=== PATIENT | male | born 1960 | race Caucasian/White ===

== ENCOUNTER 2018-05-14 13:25 | Inpatient (IN) | payer BC, OTHER ==
--- NOTE | 2018-05-14 14:04 | PDOC ---
Attending Attestation - Resident Resident Name: Yvonne Gerardo - ED Attending Attestation I have performed the following: I have examined & evaluated the patient, The case was reviewed & discussed with the resident, I agree w/resident's findings & plan, Exceptions are as noted
--- NOTE | 2018-05-14 14:29 | PDOC ---
History of Present Illness <Lorie Treviño - Last Filed: 05/14/18 15:24> - History of Present Illness Initial Comments: Ronald Connors is a 57yo man with a PMH of HTN, HLD, IDDM (reports last A1C 7.3) who presents from Dr Solano's office with new onset of symptomatic 2: 1 heart block, HR in 30's. He says that he started to have chest pressure with walking several days ago, though he denies ever having any pain. He has never experienced anything similar in the past. He went to see his PMD and was found to have a HR of 37 with a 2:1 block. He was sent to the ED for additional workup and cardiology consult. Mr Connors denies any chest pain other than the pressure feeling, as well as denying any SOB, recent fever/chills, cough, nausea/vomiting, unusual sweating, or any other recent symptoms. He notes that his diabetes has gotten worse lately with an increase in his A1C, but he takes all of his medications as prescribed. <Yvonne Gerardo - Last Filed: 05/14/18 18:03> - General Chief Complaint: Chest Pain Stated Complaint: SENT BY PCP // BRADYCARDIA Time Seen by Provider: 05/14/18 13:43 Past History <Lorie Treviño - Last Filed: 05/14/18 15:24> - Past Medical History COPD: No Diabetes: Yes HTN: Yes Hypercholesterolemia: Yes - Immunization History Immunization Up to Date: Yes - Suicide/Smoking/Psychosocial Hx Smoking History: Never smoked Information on smoking cessation initiated: No Hx Alcohol Use: No Drug/Substance Use Hx: No <Yvonne Gerardo - Last Filed: 05/14/18 18:03> - Past Medical History Allergies/Adverse Reactions: Allergies Allergy/AdvReac Type Severity Reaction Status Date / Time No Known Allergies Allergy Verified 01/17/13 12:11 Home Medications: Ambulatory Orders ASA - 81 mg PO DAILY 06/24/16 Amlodipine Besylate 10 mg PO DAILY 06/24/16 Atenolol 50 mg PO DAILY 06/24/16 Bydureon Pen 2 mg SQ WEEKLY 06/24/16 Gabapentin 300 mg PO BID 06/24/16 Invokamet 150-500 mg Tablet 1 mg PO BID 06/24/16 Lipitor 20 mg PO DAILY 06/24/16 Novolog Mix 70-30 Flexpen Syrn 40 unit SQ BID 06/24/16 Quinapril/Hydrochlorothiazide 1 tab PO DAILY 06/24/16 Canagliflozin/Metformin HCl [Invokamet Xr 150-500 mg Tablet] 1 each PO BID 05/14 Cholecalciferol (Vitamin D3) [Vitamin D3] 1,000 unit PO DAILY 05/14/18 Cyclobenzaprine HCl 10 mg PO TID 05/14/18 Review of Systems - Review of Systems Comments:: General: No fevers, no chills, no weight or appetite change, no malaise HEENT: No changes in vision, no changes in hearing, no congestion, no sore throat. +congestion when laying down CV: No chest pain, no palpitations, no LE edema. +sternal pressure w/ walking Pulm: No SOB, no cough, no wheezing GI: No nausea or vomiting, no change in bowel habits, no melena : No frequency, no urgency, no dysuria Musc: No back pain, no joint swelling, no recent injury Skin: No rash, no lesions, no erythema Endo: No excessive thirst, no heat/cold intolerance Heme: No unusual bruising or bleeding, no swollen glands Neuro: No syncope, no numbness/tingling, no focal weakness Vasc: No claudication Psych: No recent change in mood, no SI or HI <Yvonne Gerardo - Last Filed: 05/14/18 18:03> *Physical Exam - Vital Signs Last Vital Signs Temp Pulse Resp BP Pulse Ox 34 L 18 136/63 100 05/14/18 14:07 05/14/18 14:07 05/14/18 14:07 05/14/18 14:45 <Lorie Treviño - Last Filed: 05/14/18 15:24> - Vital Signs Last Vital Signs Temp Pulse Resp BP Pulse Ox 34 L 18 136/63 99 05/14/18 14:07 05/14/18 14:07 05/14/18 14:07 05/14/18 13:54 - Physical Exam Comments: General: Comfortable, no acute distress HEENT: PERRL, EOMI, MMM, voice normal, normal neck ROM, no LAD Cards: Marked bradycardia, regular rhythm Pulm: Comfortable on room air, clear to auscultation bilaterally Abd: Soft, nontender, nondistended Ext: Atraumatic. No LE edema. ROM intact. Strength 5/5 and equal bilaterally Vasc: Extremities WWP Skin: Normal color, no rashes or lesions Neuro: A&Ox3, CN grossly intact, normal speech, motor/sensory grossly intact and symmetric Psych: Mood appropriate to situation <Yvonne Gerardo - Last Filed: 05/14/18 18:03> Moderate Sedation - Procedure Monitoring Vital Signs: Procedure Monitoring Vital Signs Temperature Pulse Rate 34 L 05/14/18 14:07 Respiratory Rate 18 05/14/18 14:07 Blood Pressure 136/63 05/14/18 14:07 O2 Sat by Pulse Oximetry (%) 100 05/14/18 14:45 <Lorie Treviño - Last Filed: 05/14/18 15:24> - Procedure Monitoring Vital Signs: Procedure Monitoring Vital Signs Temperature Pulse Rate 34 L 05/14/18 14:07 Respiratory Rate 18 05/14/18 14:07 Blood Pressure 136/63 05/14/18 14:07 O2 Sat by Pulse Oximetry (%) 99 05/14/18 13:54 <Yvonne Gerardo - Last Filed: 05/14/18 18:03> ED Treatment Course - LABORATORY CBC & Chemistry Diagram: 05/14/18 14:09 05/14/18 14:09 - ADDITIONAL ORDERS Additional order review: Laboratory Results 05/14/18 14:09 Sodium 138 Potassium 4.3 Chloride 107 Carbon Dioxide 23 Anion Gap 8 BUN 28 H Creatinine 1.1 Creat Clearance w eGFR > 60 Random Glucose 96 Calcium 8.7 Magnesium 2.0 Total Bilirubin 0.9 AST 47 H ALT 60 Alkaline Phosphatase 112 Creatine Kinase 192 Creatine Kinase Index 1.6 CK-MB (CK-2) 3.2 Troponin I 0.02 Total Protein 7.1 Albumin 3.7 05/14/18 14:09 RBC 4.92 MCV 85.0 MCHC 33.3 RDW 14.9 MPV 9.1 Neutrophils % 61.0 Lymphocytes % 27.8 Monocytes % 7.8 Eosinophils % 2.6 Basophils % 0.8 - RADIOLOGY Radiology Studies Ordered: Category Date Time Status CHEST X-RAY PORTABLE* [RAD] Stat Radiology 05/14/18 14:05 Taken <Lorie Treviño - Last Filed: 05/14/18 15:24> - LABORATORY CBC & Chemistry Diagram: 05/14/18 14:09 05/14/18 14:09 <Yvonne Gerardo - Last Filed: 05/14/18 18:03> Medical Decision Making - Medical Decision Making 05/14/18 14:24 Ronald Connors is a 57yo man with a PMH of HTN, HLD, IDDM (reports last A1C 7.3) who presents from Dr Solano's office with new onset 2:1 heart block, HR in 30's. He is asymptomatic other than a feeling of sternal pressure with exertion over the past several days. - EKG sent from primary's office, will repeat here - CBC, chemistry, coags, trop, CXR - Will need to be admitted. When results available, will discuss with Dr Solano and consult cardiology 05/14/18 15:32 - Labs reviewed. No concerning abnormalities. Trop negative - Dr Andrea at bedside. Will admit to telemetry - Paged Dr Mchugh; spoke to Dr Andrea regarding consult. Discussed with Dr Treviño. Yvonne Gerardo PGY1 <Yvonne Gerardo - Last Filed: 05/14/18 18:03> *DC/Admit/Observation/Transfer - Discharge Dispostion Decision to Admit order: Yes <Lorie Treviño - Last Filed: 05/14/18 15:24> - Discharge Dispostion Decision to Admit order: Yes <Yvonne Gerardo - Last Filed: 05/14/18 18:03> Diagnosis at time of Disposition: Symptomatic bradycardia Chest pain Qualifiers: Chest pain type: unspecified Qualified Code(s): R07.9 - Chest pain, unspecified - Discharge Dispostion Condition at time of disposition: Fair
[2018-05-14 14:30] LABS: BASO % 0.8 % (0-2.0); EOS % 2.6 % (0-4.5); HEMATOCRIT 41.8 % (35.4-49); HEMOGLOBIN 13.9 GM/dL (11.7-16.9); LYMPH % 27.8 % (8-40); MCH 28.3 pg (25.7-33.7); MCHC 33.3 g/dl (32.0-35.9); MEAN PLT VOLUME 9.1 fl (7.5-11.1); MONO % 7.8 % (3.8-10.2); PLATELET COUNT 203 K/MM3 (134-434); RBC 4.92 M/mm3 (4.00-5.60); RDW 14.9 % (11.9-15.9); WHITE BLOOD COUNT 11.4 K/mm3 (4.0-10.0)
[2018-05-14 14:59] LABS: ALBUMIN 3.7 g/dl (3.4-5.0); ALK PHOS 112 U/L (45-117); ANION GAP 8 MMOL/L (8-16); BILIRUBIN,TOTAL 0.9 mg/dL (0.2-1); BLOOD UREA NITROGEN 28 mg/dL (7-18); CALCIUM 8.7 mg/dL (8.5-10.1); CHLORIDE 107 mmol/L (98-107); CO2 23 mmol/L (21-32); CREATININE 1.1 mg/dL (0.55-1.3); GLUCOSE,RANDOM 96 mg/dL (74-106); POTASSIUM 4.3 mmol/L (3.5-5.1); SGOT/AST 47 U/L (15-37); SGPT/ALT 60 U/L (13-61); SODIUM 138 mmol/L (136-145); TOT PROT 7.1 g/dl (6.4-8.2)
[2018-05-14 15:44] LABS: INR 1.08 (0.83-1.09); PROTHROMBIN TIME (PATIENT) 12.7 SEC (9.7-13.0)
--- NOTE | 2018-05-14 15:47 | HP ---
Admitting History and Physical - Admission Chief Complaint: 57 y.o M with history of T2DM for years and HTN, presented to the office with C/O orthopnea, exertional SSCP x few days, generalized weakness. His HR was 37 in the office and EKG SR, old LBBB and a new 2:1AVB. The patient was sent to [facility] AND ADMITTED FOR FURTHER MANAGEMENT TO TELEMETRY. 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 HTN LBBB Right 3rd toe ulcer. 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: Peripheral Neuropathy Cardiovascular: Yes: HTN Pulmonary: No: Asthma, Bronchitis, Cancer, COPD, O2 Dependent, Pneumonia, Previously Intubated, Pulmonary Embolus, Pulmonary Fibrosis, Sleep Apnea, Other Gastrointestinal: No: Ascites, Cancer, Constipation, Crohn's Disease, Diverticulitis, Diverticulosis, Esophageal Varices, Gastritis, GERD, GI Bleed, Hemorrhoids, Hiatal Hernia, Inflamatory Bowel Disease, Irritable Bowel Disease, Pancreatitis, Peptic Ulcer Disease, Ulcerative Colitis, Other Hepatobiliary: No: Cirrhosis, Cholelithiasis, Cholecystitis, Choledocholithiasis , Hepatitis A, Hepatitis B, Hepatitis C, Other Renal/: No: Renal Failure, Renal Inusuff, BPH, Cancer, Hematuria, Hemodialysis , Neurogenic Bladder, Renal Calculi, UTI, Other Heme/Onc: No: Anemia, B12 Deficiency, Bleeding Disorder, Cancer, Current Chemotherapy, Current Radiation Therapy, Hemochromatosis, Hypercoaguable State, Myeloproliferative Synd, Sickle Cell Disease, Sickle Cell Trait, Thrombocytopenia, Other Infectious Disease: No: AIDS, C-Diff, Herpes Zoster, HIV, MRSA, STD's, Tuberculosis, VREF, Other Musculoskeletal: No: Bursitis, Chronic low back pain, Hemiparesis, Hemiplegia, Osteoarthritis, Paraplegia, Other Rheumatology: No: Fibromyalgia, Gout, Lupus, Rheumatoid Arthritis, Sarcoidosis, Vasculitis, Other Endocrine: Yes: Diabetes Mellitus - Smoking History Smoking history: Never smoked - Alcohol/Substance Use Hx Alcohol Use: No Home Medications - Allergies Allergies/Adverse Reactions: Allergies Allergy/AdvReac Type Severity Reaction Status Date / Time No Known Allergies Allergy Verified 01/17/13 12:11 - Home Medications Home Medications: Ambulatory Orders ASA - 81 mg PO DAILY 06/24/16 Amlodipine Besylate 10 mg PO DAILY 06/24/16 Atenolol 50 mg PO DAILY 06/24/16 Bydureon Pen 2 mg SQ WEEKLY 06/24/16 Gabapentin 300 mg PO BID 06/24/16 Invokamet 150-500 mg Tablet 1 mg PO BID 06/24/16 Lipitor 20 mg PO DAILY 06/24/16 Novolog Mix 70-30 Flexpen Syrn 40 unit SQ BID 06/24/16 Quinapril/Hydrochlorothiazide 1 tab PO DAILY 06/24/16 Canagliflozin/Metformin HCl [Invokamet Xr 150-500 mg Tablet] 1 each PO BID 05/14 Cholecalciferol (Vitamin D3) [Vitamin D3] 1,000 unit PO DAILY 05/14/18 Cyclobenzaprine HCl 10 mg PO TID 05/14/18 Family Disease History - Family Disease History Family History: Unremarkable Review of Systems - Review of Systems Constitutional: reports: Weakness. denies: Chills, Diaphoresis, Fever Eyes: reports: No Symptoms HENT: reports: No Symptoms Neck: reports: No Symptoms Cardiovascular: reports: Chest Pain (exertional pressure) Respiratory: reports: Exercise Intolerance, Orthopnea. denies: Cough Gastrointestinal: denies: Abdominal Pain, Bloating, Constipation, Diarrhea Genitourinary: denies: Burning, Discharge, Dysuria, Flank Pain Breasts: reports: No Symptoms Reported Musculoskeletal: denies: Back Pain, Crepitus, Decreased ROM, Extremity Pain Integumentary: denies: No Symptoms, Blister Neurological: reports: Parasthesia. denies: Syncope, Tremors, Weakness Hematology/Lymphatic: reports: No Symptoms Psychiatric: reports: No Symptoms Physical Examination Vital Signs: Vital Signs Temperature Pulse Rate 34 L 05/14/18 14:07 Respiratory Rate 18 05/14/18 14:07 Blood Pressure 136/63 05/14/18 14:07 O2 Sat by Pulse Oximetry (%) 100 05/14/18 14:45 Constitutional: Yes: Anxious, Mild Distress, Obese Eyes: Yes: Conjunctiva Clear, EOM Intact HENT: Yes: Atraumatic, Normocephalic, Nasal Congestion. No: Drooling Neck: Yes: Supple, Trachea Midline, Thyromegaly. No: Lymphadenopathy Cardiovascular: Yes: Bradycardia, S1, S2. No: JVD, Gallop, Murmur, Rub Respiratory: Yes: Regular Gastrointestinal: Yes: Normal Bowel Sounds, Soft, Abdomen, Obese. No: Ascites, Palpable Mass ...Rectal Exam: Yes: Deferred Renal/: No: Anuria, Bladder Distention, CVA Tenderness - Left, CVA Tenderness - Right Breast(s): Yes: WNL Musculoskeletal: Yes: WNL. No: Back Pain Extremities: No: Amputation, Calf Tenderness, Cold, Cyanosis Edema: No Peripheral Pulses WNL: No Integumentary: Yes: WNL Neurological: Yes: WNL ...Motor Strength: WNL Psychiatric: Yes: WNL Labs: CBC, BMP 05/14/18 14:09 05/14/18 14:09 Laboratory Results - last 24 hr 05/14/18 05/14/18 05/14/18 14:09 14:09 14:14 WBC 11.4 H RBC 4.92 Hgb 13.9 Hct 41.8 MCV 85.0 MCH 28.3 MCHC 33.3 RDW 14.9 Plt Count 203 MPV 9.1 Absolute Neuts (auto) 7.0 Neutrophils % 61.0 Lymphocytes % 27.8 Monocytes % 7.8 Eosinophils % 2.6 Basophils % 0.8 Nucleated RBC % 4 H PT with INR 12.70 INR 1.08 Sodium 138 Potassium 4.3 Chloride 107 Carbon Dioxide 23 Anion Gap 8 BUN 28 H Creatinine 1.1 Creat Clearance w eGFR > 60 Random Glucose 96 Calcium 8.7 Magnesium 2.0 Total Bilirubin 0.9 AST 47 H ALT 60 Alkaline Phosphatase 112 Creatine Kinase 192 Creatine Kinase Index 1.6 CK-MB (CK-2) 3.2 Troponin I 0.02 Total Protein 7.1 Albumin 3.7 Imaging - Results EKG: Report Reviewed, Image Reviewed Problem List - Problems (1) Angina pectoris Assessment/Plan: ISABELA Will need Persantine test Cardiology ISABELA Code(s): I20.9 - ANGINA PECTORIS, UNSPECIFIED (2) Atrioventricular block, second degree Assessment/Plan: Telemetry D/C Atenolol Code(s): I44.1 - ATRIOVENTRICULAR BLOCK, SECOND DEGREE (3) Diabetes 1.5, managed as type 1 Assessment/Plan: Hold Metformin Insulin Code(s): E13.9 - OTHER SPECIFIED DIABETES MELLITUS WITHOUT COMPLICATIONS (4) HTN (hypertension) Assessment/Plan: Continue AMLO HCTZ. Avoid hyperkalemia Code(s): I10 - ESSENTIAL (PRIMARY) HYPERTENSION Qualifiers: Hypertension type: essential hypertension Qualified Code(s): I10 - Essential (primary) hypertension
--- NOTE | 2018-05-14 16:16 | CON.CARD ---
Consult Consult Specialty:: Cardiology Referred by:: Dr. Anthony Solano Reason for Consultation:: Cardiac evaluation - History of Present Illness Chief Complaint: Shortness of breath and ECG revealing 2:1 AV block History of Present Illness: Patient is a 57 year old male with underlying history of HTN, hypercholesterolemia, type 2 DM and exogenous obesity who presents from PMD office with 2:1 AV block and LBBB and HR of 30's. He complains of mild shortness of breath for past few days where intermittently he had to take a deep breath. He denies chest pain or palpitations. He denies paroxysmal nocturnal dyspnea or orthopnea. He denies fever or chills. He denies nausea, vomiting, diarrhea or abdominal pain. He denies headache or lightheadedness. Denies syncope. 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: Peripheral Neuropathy Cardio/Vascular: Yes: HTN, Hyperlipdemia Endocrine: Yes: Diabetes Mellitus - Alcohol/Substance Use Hx Alcohol Use: No History of Substance Use: reports: None - Smoking History Smoking history: Never smoked Home Medications - Allergies Allergies/Adverse Reactions: Allergies Allergy/AdvReac Type Severity Reaction Status Date / Time No Known Allergies Allergy Verified 01/17/13 12:11 - Home Medications Home Medications: Ambulatory Orders ASA - 81 mg PO DAILY 06/24/16 Amlodipine Besylate 10 mg PO DAILY 06/24/16 Atenolol 50 mg PO DAILY 06/24/16 Bydureon Pen 2 mg SQ WEEKLY 06/24/16 Gabapentin 300 mg PO BID 06/24/16 Invokamet 150-500 mg Tablet 1 mg PO BID 06/24/16 Lipitor 20 mg PO DAILY 06/24/16 Novolog Mix 70-30 Flexpen Syrn 40 unit SQ BID 06/24/16 Quinapril/Hydrochlorothiazide 1 tab PO DAILY 06/24/16 Canagliflozin/Metformin HCl [Invokamet Xr 150-500 mg Tablet] 1 each PO BID 05/14 Cholecalciferol (Vitamin D3) [Vitamin D3] 1,000 unit PO DAILY 05/14/18 Cyclobenzaprine HCl 10 mg PO TID 05/14/18 Family Disease History - Family Disease History Other Family History: Stroke, heart disease and DM Review of Systems - Review of Systems Constitutional: denies: Chills, Fever Cardiovascular: reports: Shortness of Breath. denies: Chest Pain, Palpitations Respiratory: reports: SOB. denies: Cough, Orthopnea, PND, SOB on Exertion, Wheezing Gastrointestinal: denies: Abdominal Pain, Constipation, Diarrhea, Melena, Nausea , Rectal Bleeding, Vomiting Musculoskeletal: denies: Joint Pain Neurological: denies: Dizziness, Headache, Seizure, Syncope Vital Signs: Vital Signs Temperature Pulse Rate 34 L 05/14/18 14:07 Respiratory Rate 18 05/14/18 14:07 Blood Pressure 136/63 05/14/18 14:07 O2 Sat by Pulse Oximetry (%) 100 05/14/18 14:45 Eyes: Yes: PERRL HENT: Yes: Atraumatic Neck: Yes: Supple Respiratory: Yes: CTA Bilaterally Gastrointestinal: Yes: Normal Bowel Sounds, Soft. No: Tenderness Cardiovascular: Yes: Regular Rate and Rhythm, Bradycardia JVD: No Carotid Bruit: No PMI: Non-Displaced Heart Sounds: Yes: S1, S2 Murmur: No: Systolic Murmur, Diastolic Murmur Edema: No - Other Data Labs, Other Data: CBC, BMP 05/14/18 14:09 05/14/18 14:09 INR, PTT INR 1.08 (0.83-1.09) 05/14/18 14:14 Troponin, BNP 05/14/18 14:09 Troponin I 0.02 Sinus with 2:1 AV block Echo: Report Reviewed Imaging - Results Chest X-ray: Report Reviewed (Unremarkable) EKG: Report Reviewed Problem List - Problems (1) Hypercholesterolemia Code(s): E78.00 - PURE HYPERCHOLESTEROLEMIA, UNSPECIFIED (2) Atrioventricular block, second degree Code(s): I44.1 - ATRIOVENTRICULAR BLOCK, SECOND DEGREE (3) Diabetes 1.5, managed as type 1 Code(s): E13.9 - OTHER SPECIFIED DIABETES MELLITUS WITHOUT COMPLICATIONS (4) HTN (hypertension) Code(s): I10 - ESSENTIAL (PRIMARY) HYPERTENSION Qualifiers: Hypertension type: essential hypertension Qualified Code(s): I10 - Essential (primary) hypertension (5) Symptomatic bradycardia Code(s): R00.1 - BRADYCARDIA, UNSPECIFIED Assessment/Plan 1. 2:1 AV block 2. HTN 3. Hypercholesterolemia 4. DM 5. 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 Transcutaneous pacer by bedside. Since he is not symptomatic, there is no need for transvenous pacemaker at this time 3. Agree to stop beta harry (patient has been on Atenolol) and not to use any AV rod agent 4. Check Lyme titre although clinically less likely 5. Echocardiography to assess LV/RV and valvular function 6. If remains in 2:1 AV block, he will need PPM insertion. Plan to transfer to Dr. Celso Dsouza of [facility] in AM unless otherwise. Keep NPO in case Will follow up. Thank you for the consultation Stephan Marcial MD
[2018-05-14] MEDS: INSULIN SLIDING SCALE (NOVOLOG) 1 VIAL SQ SCH ×2 (16:40→21:46)
--- NOTE | 2018-05-14 17:55 | ECHO ---
Name: PHOEBE MARINELLI Exam:Adult Echocardiogram Study Date: 05/14/2018 04:17 PM Age: 57 yrs Reason For Study: CHF Height: 74 in Weight: 300 lb BSA: 2.6 m2 MMode/2D Measurements & Calculations IVSd: 0.92 cm Ao root diam: 2.6 cm LVIDd: 5.4 cm LA dimension: 4.4 cm LVIDs: 3.9 cm LVPWd: 0.91 cm EDV(Teich): 140.7 ml TAPSE: 2.7 cm ESV(Teich): 65.9 ml Doppler Measurements & Calculations MV E max nikolas: 39.2 cm/sec Ao V2 max: 130.3 cm/sec MV A max nikolas: 62.9 cm/sec Ao max P.8 mmHg MV E/A: 0.62 MV dec time: 0.17 sec LV V1 max P.4 mmHg TR max nikolas: 229.8 cm/sec LV V1 max: 60.2 cm/sec TR max P.2 mmHg Med Peak E' Nikolas: 5.8 cm/sec Med E/e': 6.7 Lat Peak E' Nikolas: 10.8 cm/sec Lat E/e': 3.6 Procedure A complete two-dimensional transthoracic echocardiogram was performed (2D, M-mode, Doppler and color flow Doppler). Left Ventricle The left ventricle is normal in size. Left ventricular systolic function is normal. Ejection Fraction = 55- 60%. No regional wall motion abnormalities noted. Right Ventricle The right ventricle is normal size. The right ventricular systolic function is normal. RV systolic TD I is 11 cm/s. Atria The left atrium is mildly dilated. Right atrial size is normal. Mitral Valve There is mild mitral annular calcification. There is no mitral regurgitation noted. Tricuspid Valve The tricuspid valve is normal in structure and function. There is mild tricuspid regurgitation. Right ventricular systolic pressure is normal. Aortic Valve The aortic valve is normal in structure and function. No aortic regurgitation is present. Pulmonic Valve The pulmonic valve is not well visualized. Great Vessels The aortic root is normal size. Pericardium/Pleura There is no pericardial effusion. Interpretation Summary The left ventricle is normal in size. Left ventricular systolic function is normal. No regional wall motion abnormalities noted. Ejection Fraction = 55-60%. The right ventricular systolic function is normal. The left atrium is mildly dilated. Right atrial size is normal. There is mild mitral annular calcification. There is mild tricuspid regurgitation. Right ventricular systolic pressure is normal. There is no pericardial effusion. Previous study is not available for comparison Stephan Marcial MD 05/14/2018 05:54 PM
[2018-05-14] MEDS: ATORVASTATIN CA 40 MG TABLET (FP) PO SCH (21:45)
[2018-05-14] MEDS: INSULIN (LEVEMIR) 100 UNITS/ML UNITS SQ SCH (21:48)
[2018-05-14 22:33] VITALS: BMI 38.7
[2018-05-15] MEDS: INSULIN SLIDING SCALE (NOVOLOG) 1 VIAL SQ SCH ×4 (06:28→21:39)
[2018-05-15] MEDS: INSULIN (LEVEMIR) 100 UNITS/ML UNITS SQ SCH ×2 (06:28→21:35)
[2018-05-15 07:50] LABS: BASO % 0.4 % (0-2.0); EOS % 5.4 % (0-4.5); HEMATOCRIT 40.3 % (35.4-49); HEMOGLOBIN 13.6 GM/dL (11.7-16.9); LYMPH % 26.9 % (8-40); MCH 28.6 pg (25.7-33.7); MCHC 33.6 g/dl (32.0-35.9); MEAN CELL VOLUME 84.9 fl (80-96); MEAN PLT VOLUME 9.3 fl (7.5-11.1); MONO % 9.2 % (3.8-10.2); NEUT % 58.1 % (42.8-82.8); PLATELET COUNT 202 K/MM3 (134-434); RBC 4.75 M/mm3 (4.00-5.60); RDW 15.2 % (11.9-15.9); WHITE BLOOD COUNT 9.7 K/mm3 (4.0-10.0)
[2018-05-15 08:27] LABS: ALBUMIN 3.8 g/dl (3.4-5.0); ALK PHOS 99 U/L (45-117); ANION GAP 7 MMOL/L (8-16); BILIRUBIN,TOTAL 1.5 mg/dL (0.2-1); BLOOD UREA NITROGEN 23 mg/dL (7-18); CALCIUM 9.2 mg/dL (8.5-10.1); CHLORIDE 105 mmol/L (98-107); CHOLESTEROL 97 mg/dL (50-200); CO2 27 mmol/L (21-32); CREATININE 1.1 mg/dL (0.55-1.3); GLUCOSE,RANDOM 118 mg/dL (74-106); HDL CHOLESTEROL 31 mg/dL (40-60); MAGNESIUM 2.3 mg/dL (1.8-2.4); PHOSPHOROUS 3.7 mg/dL (2.5-4.9); POTASSIUM 4.9 mmol/L (3.5-5.1); SGOT/AST 28 U/L (15-37); SGPT/ALT 54 U/L (13-61); SODIUM 139 mmol/L (136-145); TOT PROT 7.1 g/dl (6.4-8.2); TRIGLYCERIDES 133 mg/dL (0-150)
[2018-05-15] MEDS ORDERED: PT OWN MED DRAWER 7, Y5N ONE ×3 (09:54→16:47)
[2018-05-15] MEDS: amLODIPine BESYLATE 10 MG TABLET (FP) PO SCH (10:48)
[2018-05-15] MEDS: HYDROCHLOROTHIAZIDE 25 MG TABLET (FP) PO SCH (10:48)
[2018-05-15] MEDS: ASPIRIN 81 MG CHEWABLE TABLETS PO SCH (10:48)
--- NOTE | 2018-05-15 11:15 | PN ---
Progress Note, Physician Chief Complaint: Not in distress but still has 2:1 AV block with HR of 30's. At times he goes back to sinus bradycardia at 50's History of Present Illness: Patient was seen and examined. Awake and alert. Chart was reviewed Denies chest pain, SOB or palpitations Denies dizziness - Current Medication List Current Medications: Active Medications Amlodipine Besylate (Norvasc -) 10 mg PO DAILY [facility] Last Admin: 05/15/18 10:48 Dose: 10 mg Aspirin (Asa -) 81 mg PO DAILY [facility] Last Admin: 05/15/18 10:48 Dose: 81 mg Atorvastatin Calcium (Lipitor -) 40 mg PO HS [facility] Last Admin: 05/14/18 21:45 Dose: 40 mg Hydrochlorothiazide (Hctz -) 25 mg PO DAILY [facility] Last Admin: 05/15/18 10:48 Dose: 25 mg Insulin Aspart (Novolog Vial Sliding Scale -) 1 vial SQ [facility]; Protocol Last Admin: 05/15/18 06:28 Dose: Not Given Insulin Detemir (Levemir Vial) 20 units SQ BID@0700,2200 [facility] Last Admin: 05/15/18 06:28 Dose: Not Given Quinapril HCl (Accupril -) 5 mg PO DAILY [facility] - Objective Vital Signs: Vital Signs Temperature 98 F 05/15/18 09:00 Pulse Rate 35 L 05/15/18 09:00 Respiratory Rate 18 05/15/18 09:00 Blood Pressure 136/54 L 05/15/18 09:00 O2 Sat by Pulse Oximetry (%) 94 L 05/14/18 19:30 Eyes: Yes: PERRL HENT: Yes: Atraumatic Neck: Yes: Supple Cardiovascular: Yes: Regular Rate and Rhythm, Bradycardia, S1, S2. No: Murmur Respiratory: Yes: CTA Bilaterally Gastrointestinal: Yes: Normal Bowel Sounds, Soft, Abdomen, Obese. No: Tenderness Edema: No Additional Findings/Remarks: - Review of Systems Constitutional: denies: Chills, Fever Cardiovascular: reports: Shortness of Breath. denies: Chest Pain, Palpitations Respiratory: reports: SOB. denies: Cough, Orthopnea, PND, SOB on Exertion, Wheezing Gastrointestinal: denies: Abdominal Pain, Constipation, Diarrhea, Melena, Nausea , Rectal Bleeding, Vomiting Musculoskeletal: denies: Joint Pain Neurological: denies: Dizziness, Headache, Seizure, Syncope Labs: CBC, BMP 05/15/18 05:50 05/15/18 05:50 INR, PTT INR 1.08 (0.83-1.09) 05/14/18 14:14 Laboratory Results - last 24 hr 05/14/18 05/14/18 05/14/18 14:09 14:09 14:14 WBC 11.4 H RBC 4.92 Hgb 13.9 Hct 41.8 MCV 85.0 MCH 28.3 MCHC 33.3 RDW 14.9 Plt Count 203 MPV 9.1 Absolute Neuts (auto) 7.0 Neutrophils % 61.0 Lymphocytes % 27.8 Monocytes % 7.8 Eosinophils % 2.6 Basophils % 0.8 Nucleated RBC % 4 H PT with INR 12.70 INR 1.08 Sodium 138 Potassium 4.3 Chloride 107 Carbon Dioxide 23 Anion Gap 8 BUN 28 H Creatinine 1.1 Creat Clearance w eGFR > 60 POC Glucometer Random Glucose 96 Hemoglobin A1c % Calcium 8.7 Phosphorus Magnesium 2.0 Total Bilirubin 0.9 AST 47 H ALT 60 Alkaline Phosphatase 112 Creatine Kinase 192 Creatine Kinase Index 1.6 CK-MB (CK-2) 3.2 Troponin I 0.02 Total Protein 7.1 Albumin 3.7 Triglycerides Cholesterol Total LDL Cholesterol HDL Cholesterol 05/14/18 05/14/18 05/14/18 16:34 16:43 21:43 WBC RBC Hgb Hct MCV MCH MCHC RDW Plt Count MPV Absolute Neuts (auto) Neutrophils % Lymphocytes % Monocytes % Eosinophils % Basophils % Nucleated RBC % PT with INR INR Sodium Potassium Chloride Carbon Dioxide Anion Gap BUN Creatinine Creat Clearance w eGFR POC Glucometer 98 124 Random Glucose Hemoglobin A1c % Calcium Phosphorus Magnesium Total Bilirubin AST ALT Alkaline Phosphatase Creatine Kinase 171 Creatine Kinase Index 1.8 CK-MB (CK-2) 3.2 Troponin I < 0.02 Total Protein Albumin Triglycerides Cholesterol Total LDL Cholesterol HDL Cholesterol 05/15/18 05/15/18 05/15/18 05:50 05:50 05:50 WBC 9.7 RBC 4.75 Hgb 13.6 Hct 40.3 MCV 84.9 MCH 28.6 MCHC 33.6 RDW 15.2 Plt Count 202 MPV 9.3 Absolute Neuts (auto) 5.7 Neutrophils % 58.1 Lymphocytes % 26.9 Monocytes % 9.2 Eosinophils % 5.4 H D Basophils % 0.4 Nucleated RBC % 0 PT with INR INR Sodium 139 Potassium 4.9 Chloride 105 Carbon Dioxide 27 Anion Gap 7 L BUN 23 H Creatinine 1.1 Creat Clearance w eGFR > 60 POC Glucometer Random Glucose 118 H Hemoglobin A1c % 7.2 H Calcium 9.2 Phosphorus 3.7 Magnesium 2.3 Total Bilirubin 1.5 H AST 28 ALT 54 Alkaline Phosphatase 99 Creatine Kinase Creatine Kinase Index CK-MB (CK-2) Troponin I Total Protein 7.1 Albumin 3.8 Triglycerides 133 Cholesterol 97 Total LDL Cholesterol 51 HDL Cholesterol 31 L Problem List - Problems (1) Hypercholesterolemia Code(s): E78.00 - PURE HYPERCHOLESTEROLEMIA, UNSPECIFIED (2) Atrioventricular block, second degree Code(s): I44.1 - ATRIOVENTRICULAR BLOCK, SECOND DEGREE (3) Diabetes 1.5, managed as type 1 Code(s): E13.9 - OTHER SPECIFIED DIABETES MELLITUS WITHOUT COMPLICATIONS (4) HTN (hypertension) Code(s): I10 - ESSENTIAL (PRIMARY) HYPERTENSION Qualifiers: Hypertension type: essential hypertension Qualified Code(s): I10 - Essential (primary) hypertension (5) Symptomatic bradycardia Code(s): R00.1 - BRADYCARDIA, UNSPECIFIED Assessment/Plan 1. 2:1 AV block with transient jain of normal rhythm 2. HTN 3. Hypercholesterolemia 4. DM 5. Exogenous obesity PLAN: 1. 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 Transcutaneous pacer by bedside. Since he is not symptomatic, there is no need for transvenous pacemaker. 3. Agree to stop beta harry (patient has been on Atenolol) and not to use any AV rod agent. It is possible that his heart block is due to the beta harry, but still would recommend pacemaker implantation 4. Check Lyme titre although clinically less likely 5. Echocardiography was reviewed 6. Plan to transfer to Dr. Celso Dsouza of [facility] once bed is available. Further plans are to follow. Stephan Marcial MD
[2018-05-15] MEDS: QUINAPRIL HCL 5 MG TABLET (FP) PO SCH (12:16)
--- NOTE | 2018-05-15 12:39 | PN ---
Progress Note, Physician Chief Complaint: HR remains in 30s with AVB 2:1, occasionally SB 60 NAD History of Present Illness: DM TYPE 2 ON INSULIN DIABETIC NEPHROPATHY, NEUROPATHY. HTN LBBB Right 3rd toe ulcer. BERNABE with elevated LFT - Current Medication List Current Medications: Active Medications Amlodipine Besylate (Norvasc -) 10 mg PO DAILY [facility] Last Admin: 05/15/18 10:48 Dose: 10 mg Aspirin (Asa -) 81 mg PO DAILY [facility] Last Admin: 05/15/18 10:48 Dose: 81 mg Atorvastatin Calcium (Lipitor -) 40 mg PO HS [facility] Last Admin: 05/14/18 21:45 Dose: 40 mg Hydrochlorothiazide (Hctz -) 25 mg PO DAILY [facility] Last Admin: 05/15/18 10:48 Dose: 25 mg Insulin Aspart (Novolog Vial Sliding Scale -) 1 vial SQ [facility]CHS [facility]; Protocol Last Admin: 05/15/18 12:11 Dose: Not Given Insulin Detemir (Levemir Vial) 20 units SQ BID@0700,2200 [facility] Last Admin: 05/15/18 06:28 Dose: Not Given Quinapril HCl (Accupril -) 5 mg PO DAILY [facility] Last Admin: 05/15/18 12:16 Dose: Not Given - Objective Vital Signs: Vital Signs Temperature 98 F 05/15/18 09:00 Pulse Rate 35 L 05/15/18 09:00 Respiratory Rate 18 05/15/18 09:00 Blood Pressure 136/54 L 05/15/18 09:00 O2 Sat by Pulse Oximetry (%) 98 05/15/18 09:00 Constitutional: Yes: No Distress, Anxious Eyes: Yes: Conjunctiva Clear, EOM Intact HENT: Yes: Atraumatic, Normocephalic Neck: Yes: Supple, Trachea Midline. No: Decreased ROM, Lymphadenopathy Cardiovascular: Yes: Regular Rate and Rhythm, Bradycardia, S1, S2. No: JVD Respiratory: Yes: Regular, CTA Bilaterally Gastrointestinal: Yes: Normal Bowel Sounds, Soft, Abdomen, Obese ...Rectal Exam: Yes: Deferred Genitourinary: No: Anuria, Bladder Distention, CVA Tenderness - Left, CVA Tenderness - Right Breast(s): Yes: WNL Musculoskeletal: Yes: WNL Extremities: Yes: WNL Edema: No Neurological: Yes: WNL ...Motor Strength: WNL Psychiatric: Yes: WNL Labs: CBC, BMP 05/15/18 05:50 05/15/18 05:50 INR, PTT INR 1.08 (0.83-1.09) 05/14/18 14:14 Problem List - Problems (1) Angina pectoris Assessment/Plan: ISABELA-negative Will need Persantine test eventually Cardiology ISABELA Code(s): I20.9 - ANGINA PECTORIS, UNSPECIFIED (2) Atrioventricular block, second degree Assessment/Plan: Telemetry OFF Atenolol PPM is planned by cardiology Code(s): I44.1 - ATRIOVENTRICULAR BLOCK, SECOND DEGREE (3) Diabetes 1.5, managed as type 1 Assessment/Plan: Hold Metformin Insulin Code(s): E13.9 - OTHER SPECIFIED DIABETES MELLITUS WITHOUT COMPLICATIONS (4) HTN (hypertension) Assessment/Plan: Continue AMLO HCTZ. Avoid hyperkalemia Code(s): I10 - ESSENTIAL (PRIMARY) HYPERTENSION Qualifiers: Hypertension type: essential hypertension Qualified Code(s): I10 - Essential (primary) hypertension
--- NOTE | 2018-05-15 17:17 | EKG ---
Test Reason : Blood Pressure : / mmHG Vent. Rate : 034 BPM Atrial Rate : 034 BPM P-R Int : 206 ms QRS Dur : 156 ms QT Int : 568 ms P-R-T Axes : -09 -15 070 degrees QTc Int : 426 ms POOR DATA QUALITY, INTERPRETATION MAY BE ADVERSELY AFFECTED MARKED SINUS BRADYCARDIA LEFT BUNDLE BRANCH BLOCK ABNORMAL ECG NO PREVIOUS ECGS AVAILABLE Confirmed by MD YOON, ANGELES ([id number]) on 05/15/2018 5:16:51 PM Referred By: Confirmed By:ANGELES NETTLES MD
[2018-05-15] MEDS: ATORVASTATIN CA 40 MG TABLET (FP) PO SCH (21:35)
[2018-05-16] MEDS: INSULIN SLIDING SCALE (NOVOLOG) 1 VIAL SQ SCH ×4 (06:29→21:38)
[2018-05-16] MEDS: INSULIN (LEVEMIR) 100 UNITS/ML UNITS SQ SCH ×2 (06:52→21:35)
--- NOTE | 2018-05-16 10:47 | PN ---
Progress Note, Physician History of Present Illness: Bradyarrhythmia resolving off atenolol. Denies dyspnea, near or true syncope, fatigue. - Current Medication List Current Medications: Active Medications Amlodipine Besylate (Norvasc -) 10 mg PO DAILY [facility] Last Admin: 05/15/18 10:48 Dose: 10 mg Aspirin (Asa -) 81 mg PO DAILY [facility] Last Admin: 05/15/18 10:48 Dose: 81 mg Atorvastatin Calcium (Lipitor -) 40 mg PO HS [facility] Last Admin: 05/15/18 21:35 Dose: 40 mg Hydrochlorothiazide (Hctz -) 25 mg PO DAILY [facility] Last Admin: 05/15/18 10:48 Dose: 25 mg Insulin Aspart (Novolog Vial Sliding Scale -) 1 vial SQ ACHS [facility]; Protocol Last Admin: 05/16/18 06:29 Dose: Not Given Insulin Detemir (Levemir Vial) 20 units SQ BID@0700,2200 [facility] Last Admin: 05/16/18 06:52 Dose: 20 units Quinapril HCl (Accupril -) 5 mg PO DAILY [facility] Last Admin: 05/15/18 12:16 Dose: Not Given - Objective Vital Signs: Vital Signs Temperature 98.1 F 05/16/18 05:24 Pulse Rate 60 05/16/18 10:00 Respiratory Rate 18 05/16/18 10:00 Blood Pressure 144/76 05/16/18 10:00 O2 Sat by Pulse Oximetry (%) 94 L 05/15/18 20:26 Constitutional: Yes: No Distress, Calm Neck: Yes: Supple Cardiovascular: Yes: Bradycardia Respiratory: Yes: Regular, CTA Bilaterally Gastrointestinal: Yes: Normal Bowel Sounds, Soft Edema: Yes Edema: LLE: Trace, RLE: Trace Labs: CBC, BMP 05/15/18 05:50 05/15/18 05:50 INR, PTT INR 1.08 (0.83-1.09) 05/14/18 14:14 - ....Imaging EKG: Report Reviewed (Tele: SB @ 50s) Problem List - Problems (1) Atrioventricular block, second degree Code(s): I44.1 - ATRIOVENTRICULAR BLOCK, SECOND DEGREE (2) Diabetes 1.5, managed as type 1 Code(s): E13.9 - OTHER SPECIFIED DIABETES MELLITUS WITHOUT COMPLICATIONS (3) HTN (hypertension) Code(s): I10 - ESSENTIAL (PRIMARY) HYPERTENSION Qualifiers: Hypertension type: essential hypertension Qualified Code(s): I10 - Essential (primary) hypertension (4) Hypercholesterolemia Code(s): E78.00 - PURE HYPERCHOLESTEROLEMIA, UNSPECIFIED (5) Symptomatic bradycardia Code(s): R00.1 - BRADYCARDIA, UNSPECIFIED Assessment/Plan Echo: 05/14/2018 Normal LV and RV size and fxn LVEF 55-60%, mild LAE, mild MR, TR 1. Transient 2:1 AV block resolving off beta blockade, assess chronotropic competence 2. HTN 3. Hypercholesterolemia 4. DM 5. 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 Agree with observation off Atenolol and not to use any AV rod agent. It is possible that his heart block is due to the beta harry, ETT to document chronotropic competence 3. Continue Norvasc 10 qd, ASA 81 qd, Lipitor 40 qd, HCTZ 25 qd, Accupril 5 qd 4. Check Lyme titre although clinically less likely 5. PPM insertion if chronotropic incompetence with exercise is confirmed
[2018-05-16] MEDS: HYDROCHLOROTHIAZIDE 25 MG TABLET (FP) PO SCH (12:23)
[2018-05-16] MEDS: amLODIPine BESYLATE 10 MG TABLET (FP) PO SCH (12:23)
[2018-05-16] MEDS: QUINAPRIL HCL 5 MG TABLET (FP) PO SCH (12:23)
[2018-05-16] MEDS: ASPIRIN 81 MG CHEWABLE TABLETS PO SCH (12:23)
--- NOTE | 2018-05-16 13:56 | PN ---
Progress Note, Physician Chief Complaint: The patient continues to have intermittent Bradicardia with AVB 2:1 and SR 60- 65 BPM History of Present Illness: DM TYPE 2 ON INSULIN DIABETIC NEPHROPATHY, NEUROPATHY. HTN LBBB Right 3rd toe ulcer. BERNABE with elevated LFT - Current Medication List Current Medications: Active Medications Amlodipine Besylate (Norvasc -) 10 mg PO DAILY [facility] Last Admin: 05/16/18 12:23 Dose: 10 mg Aspirin (Asa -) 81 mg PO DAILY [facility] Last Admin: 05/16/18 12:23 Dose: 81 mg Atorvastatin Calcium (Lipitor -) 40 mg PO HS [facility] Last Admin: 05/15/18 21:35 Dose: 40 mg Hydrochlorothiazide (Hctz -) 25 mg PO DAILY [facility] Last Admin: 05/16/18 12:23 Dose: 25 mg Insulin Aspart (Novolog Vial Sliding Scale -) 1 vial SQ [facility]; Protocol Last Admin: 05/16/18 12:32 Dose: Not Given Insulin Detemir (Levemir Vial) 20 units SQ BID@0700,2200 [facility] Last Admin: 05/16/18 06:52 Dose: 20 units Quinapril HCl (Accupril -) 5 mg PO DAILY [facility] Last Admin: 05/16/18 12:23 Dose: 5 mg - Objective Vital Signs: Vital Signs Temperature 98.1 F 05/16/18 05:24 Pulse Rate 60 05/16/18 10:00 Respiratory Rate 18 05/16/18 10:00 Blood Pressure 144/76 05/16/18 10:00 O2 Sat by Pulse Oximetry (%) 94 L 05/15/18 20:26 Constitutional: Yes: No Distress, Calm Eyes: Yes: Conjunctiva Clear, EOM Intact HENT: Yes: Atraumatic, Normocephalic Neck: Yes: Supple, Trachea Midline Cardiovascular: Yes: Regular Rate and Rhythm, Bradycardia, S1, S2 Respiratory: Yes: Regular, CTA Bilaterally Gastrointestinal: Yes: Normal Bowel Sounds, Soft, Abdomen, Obese. No: Ascites ...Rectal Exam: Yes: Deferred Genitourinary: No: Anuria, Bladder Distention, CVA Tenderness - Left, CVA Tenderness - Right Breast(s): Yes: WNL Musculoskeletal: Yes: Back Pain Extremities: No: Amputation, Calf Tenderness, Cold, Cyanosis Edema: No Integumentary: Yes: WNL Neurological: Yes: Alert, Oriented, Tingling. No: Seizure ...Motor Strength: WNL Psychiatric: Yes: WNL Labs: CBC, BMP 05/15/18 05:50 05/15/18 05:50 INR, PTT INR 1.08 (0.83-1.09) 05/14/18 14:14 Problem List - Problems (1) Angina pectoris Assessment/Plan: ISABELA-negative Will need Persantine test eventually Cardiology ISABELA Code(s): I20.9 - ANGINA PECTORIS, UNSPECIFIED (2) Atrioventricular block, second degree Assessment/Plan: Telemetry OFF Atenolol PPM is planned by cardiology Code(s): I44.1 - ATRIOVENTRICULAR BLOCK, SECOND DEGREE (3) Diabetes 1.5, managed as type 1 Assessment/Plan: Hold Metformin Insulin Code(s): E13.9 - OTHER SPECIFIED DIABETES MELLITUS WITHOUT COMPLICATIONS (4) HTN (hypertension) Assessment/Plan: Continue AMLO HCTZ. Avoid hyperkalemia Code(s): I10 - ESSENTIAL (PRIMARY) HYPERTENSION Qualifiers: Hypertension type: essential hypertension Qualified Code(s): I10 - Essential (primary) hypertension
--- NOTE | 2018-05-16 15:20 | TRE ---
Protocol Name : JI Max Work Load (METS*10) : 47 Time In Exercise Phase : 00:03:07 Max. Systolic BP : 160 mmHg Max Diastolic BP : 80 mmHg Max Heart Rate : 92 BPM Max Predicted Heart Rate : 164 BPM Attending Physician : DR. DOWNEY Reason For Termination : HEART RATE IMPROVED WTH EXERCISE Reason for Test : LOW H.R , 2:1 AV BLOCK Stress Protocol : JI Rest HR : 37 BPM PeakEx METs : 4.7 METS Recovery ECG Response (OLD) : Overall Impression : SEE TREADMILL STRESS REPORT Diagnosis : Baseline ekg nsr LBBB 2;1 AVB with exercise patient 2;1 block resolved and HR increased to 92 with 1;1 conduction. No chest pain. EKG uninterpretable for induced ischemia. Test terminated due to mild fatigue and sob and achievement of 1;1 AV node conduction.. Confirmed by SHAYAN ZAPATA, DELGADO ([id number]) on 05/16/2018 3:20:17 PM
[2018-05-16] MEDS ORDERED: IBUPROFEN 400 MG TABLET (FP) PO PRN (20:47)
[2018-05-16] MEDS: ATORVASTATIN CA 40 MG TABLET (FP) PO SCH (21:35)
[2018-05-17] MEDS: INSULIN SLIDING SCALE (NOVOLOG) 1 VIAL SQ SCH (06:28)
[2018-05-17] MEDS: INSULIN (LEVEMIR) 100 UNITS/ML UNITS SQ SCH (06:31)
[2018-05-17 07:32] VITALS: BP 143/68; PULSE 53; TEMP 98.3
--- NOTE | 2018-05-17 08:06 | PN ---
Progress Note, Physician Chief Complaint: EST showed resolution of AVB during exercise . Now in 2:1 AVB, comfortable in a chair PPM planned. 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 HTN LBBB Right 3rd toe ulcer. BERNABE with elevated LFT - Current Medication List Current Medications: Active Medications Amlodipine Besylate (Norvasc -) 10 mg PO DAILY [facility] Last Admin: 05/16/18 12:23 Dose: 10 mg Aspirin (Asa -) 81 mg PO DAILY [facility] Last Admin: 05/16/18 12:23 Dose: 81 mg Atorvastatin Calcium (Lipitor -) 40 mg PO HS [facility] Last Admin: 05/16/18 21:35 Dose: 40 mg Gabapentin (Neurontin -) 300 mg PO BID [facility] Hydrochlorothiazide (Hctz -) 25 mg PO DAILY [facility] Last Admin: 05/16/18 12:23 Dose: 25 mg Ibuprofen (Motrin -) 400 mg PO Q6H PRN PRN Reason: PAIN LEVEL 1-5 Last Admin: 05/16/18 21:35 Dose: 400 mg Insulin Aspart (Novolog Vial Sliding Scale -) 1 vial SQ [facility]; Protocol Last Admin: 05/17/18 06:28 Dose: Not Given Insulin Detemir (Levemir Vial) 20 units SQ BID@0700,2200 [facility] Last Admin: 05/17/18 06:31 Dose: 20 units Quinapril HCl (Accupril -) 5 mg PO DAILY [facility] Last Admin: 05/16/18 12:23 Dose: 5 mg - Objective Vital Signs: Vital Signs Temperature 98.3 F 05/17/18 06:00 Pulse Rate 53 L 05/17/18 06:00 Respiratory Rate 18 05/17/18 06:00 Blood Pressure 143/68 05/17/18 06:00 O2 Sat by Pulse Oximetry (%) 94 L 05/16/18 21:00 Constitutional: Yes: No Distress, Anxious Eyes: Yes: Conjunctiva Clear, EOM Intact HENT: Yes: Atraumatic, Normocephalic. No: Drooling, Epistaxis, Hoarseness Neck: Yes: Supple, Trachea Midline. No: Decreased ROM, Lymphadenopathy Cardiovascular: Yes: Regular Rate and Rhythm, Bradycardia Respiratory: Yes: Regular, CTA Bilaterally Gastrointestinal: Yes: Normal Bowel Sounds, Soft, Abdomen, Obese. No: Ascites ...Rectal Exam: Yes: Deferred Genitourinary: No: Anuria, Bladder Distention Breast(s): Yes: WNL Musculoskeletal: Yes: WNL Extremities: Yes: WNL Edema: No Peripheral Pulses WNL: No Neurological: Yes: Numbness ...Motor Strength: WNL Psychiatric: Yes: WNL Labs: CBC, BMP 05/15/18 05:50 05/15/18 05:50 INR, PTT INR 1.08 (0.83-1.09) 05/14/18 14:14 Problem List - Problems (1) Angina pectoris Assessment/Plan: ISABELA-negative Will need Persantine test eventually Cardiology ISABELA Code(s): I20.9 - ANGINA PECTORIS, UNSPECIFIED (2) Atrioventricular block, second degree Assessment/Plan: EST -resolved AVB and returned after rest Telemetry OFF Atenolol PPM is planned by cardiology Code(s): I44.1 - ATRIOVENTRICULAR BLOCK, SECOND DEGREE (3) Diabetes 1.5, managed as type 1 Assessment/Plan: Hold Metformin Insulin Code(s): E13.9 - OTHER SPECIFIED DIABETES MELLITUS WITHOUT COMPLICATIONS (4) HTN (hypertension) Assessment/Plan: Continue AMLO HCTZ. Avoid hyperkalemia Code(s): I10 - ESSENTIAL (PRIMARY) HYPERTENSION Qualifiers: Hypertension type: essential hypertension Qualified Code(s): I10 - Essential (primary) hypertension
[2018-05-17] MEDS ORDERED: PT OWN MED DRAWER 7, Y5N ONE (08:39)
[2018-05-17] MEDS: ASPIRIN 81 MG CHEWABLE TABLETS PO SCH (08:41)
[2018-05-17] MEDS: amLODIPine BESYLATE 10 MG TABLET (FP) PO SCH (08:41)
[2018-05-17] MEDS: HYDROCHLOROTHIAZIDE 25 MG TABLET (FP) PO SCH (08:41)
[2018-05-17] MEDS ORDERED: GABAPENTIN 300 MG CAPSULE (FP) PO SCH (10:00)
== END 2018-05-17 09:04 | disposition short-term general hospital (02) | DRG 310 ==
LOC: JER 13:25 → JERBED 15:25 → J4W 19:05
PROVIDERS: ADMIT Internal Medicine; ATTEND Internal Medicine
DX: I44.1 Atrioventricular block, second degree (principal); I10 Essential (primary) hypertension; R00.1 Bradycardia, unspecified; Z79.4 Long term (current) use of insulin; I44.7 Left bundle-branch block, unspecified; E11.21 Type 2 diabetes mellitus with diabetic nephropathy; E11.40 Type 2 diabetes mellitus with diabetic neuropathy, unspecified; L97.519 Non-pressure chronic ulcer of other part of right foot with unspecified severity; E66.09 Other obesity due to excess calories; Z68.37 Body mass index [BMI] 37.0-37.9, adult; E78.5 Hyperlipidemia, unspecified; I20.9 Angina pectoris, unspecified; K75.81 Nonalcoholic steatohepatitis (NASH)
CPT/HCPCS: 36415; 71045-TC-FY; 80053; 80061; 82550; 82553; 82962; 83036; 83721; 83735; 84100; 84484; 85025; 85610; 86618; 93005; 93010; 93017; 93018; 93306-TC; 99285-25

== ENCOUNTER 2019-09-12 09:40 | Emergency (ER) | payer BC ==
--- NOTE | 2019-09-12 09:50 | PDOC ---
Rapid Medical Evaluation Time Seen by Provider: 09/12/19 09:44 Medical Evaluation: Allergies Allergy/AdvReac Type Severity Reaction Status Date / Time No Known Allergies Allergy Verified 01/17/13 12:11 09/12/19 09:47 I performed a brief in-person evaluation of this patient. Pt is a 58 y/o male who presents to the ED with chest pressure that he describes as a gripping pain across his chest that started about 25 minutes ago. He has a history of DM, HTN, HLD, pacemaker. Cards is Dr. Mchugh. 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 Pertinent physical exam findings: speaking in full sentences, diaphoretic, no respiratory distress. I have ordered the following: cardiac labs, saline lock, ekg, cxr Patient to proceed to ED for further evaluation. Discharge Disposition - Diagnosis Chest pain - Referrals - Patient Instructions - Post Discharge Activity
[2019-09-12 09:51] VITALS: BMI 38.5
[2019-09-12] MEDS ORDERED: ACETAMINOPHEN 1000 MG/100 ML VIAL (NON FORMULARY) IVPB ONE (09:56)
--- NOTE | 2019-09-12 09:57 | PDOC ---
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 Pt states the pain started when he was moving heavy equipment and it was hot inside the building. The pain radiated towards the R side of his chest, not associated with diaphoresis, nausea/vomiting or syncope. Chest pain was resolved upon arrival and pt did not taken any analgesics prior to arrival. Pt also endorses recent increased redness and "tightness" of his calf in the lower right leg and states "I'm always bumping into things". Pt denies any recent fevers/chills, headache, vision changes, syncope, palpitations, SOB, nausea/vomiting, abdominal pain, urinary symptoms, diarrhea/constipation, or leg swelling from baseline. Allergies: NKDA PCP: Dr. Solano Cards: Dr. Mchugh Social: Pt denies any cigarette, alcohol, or drug use. Pt denies any recent travel or sick contacts. Surgical: AICD Family: no relevant history. 09/12/19 14:06 09/12/19 16:16 Past History - Travel History Traveled outside of the country in the last 30 days: No Close contact w/someone who was outside of country & ill: No - Medical History Allergies/Adverse Reactions: Allergies Allergy/AdvReac Type Severity Reaction Status Date / Time No Known Allergies Allergy Verified 09/12/19 09:51 Home Medications: Ambulatory Orders ASA - 81 mg PO DAILY 06/24/16 Amlodipine Besylate 10 mg PO DAILY 06/24/16 Atenolol 50 mg PO DAILY 06/24/16 Bydureon Pen 2 mg SQ WEEKLY 06/24/16 Gabapentin 300 mg PO BID 06/24/16 Invokamet 150-500 mg Tablet 1 mg PO BID 06/24/16 Lipitor 20 mg PO DAILY 06/24/16 Novolog Mix 70-30 Flexpen Syrn 40 unit SQ BID 06/24/16 Quinapril/Hydrochlorothiazide 1 tab PO DAILY 06/24/16 Canagliflozin/Metformin HCl [Invokamet Xr 150-500 mg Tablet] 1 each PO BID 05/14/18 Cholecalciferol (Vitamin D3) [Vitamin D3] 1,000 unit PO DAILY 05/14/18 Cyclobenzaprine HCl 10 mg PO TID 05/14/18 COPD: No Diabetes: Yes HTN: Yes Hypercholesterolemia: Yes - Immunization History Immunization Up to Date: Yes - Psycho-Social/Smoking History Smoking History: Never smoked Have you smoked in the past 12 months: No Information on smoking cessation initiated: No - Substance Abuse Hx (Audit-C & DAST Scrn) How often the patient has a drink containing alcohol: Never Score: In Men: 4 or > Positive; In Women: 3 or > Positive: 0 Screen Result (Pos requires Nsg. Audit-10AR): Negative In the last yr the pt used illegal drug/Rx for NonMed reason: No Score: Yes response is considered Positive: 0 Screen Result (Positive result requires Nsg. DAST-10): Negative Cardiac Specific PMH - Complaint Specific PMHX Abdominal Aortic Aneurysm: No Angina: No Cardiac Arrhythmia: Yes Cardiac Stent: No GERD: No Myocardial Infarction: No Pacemaker: Yes Pulmonary Embolus: No Valvular Heart Disease: No Peripheral Vascular Disease: No Review of Systems - Review of Systems Able to Perform ROS?: Yes Is the patient limited Latvian proficient: No Constitutional: Yes: Weight Stable. No: Chills, Diaphoresis, Fever, Loss of Appetite, Malaise, Weakness HEENTM: No: Recent change in vision, Nose Congestion, Throat Pain, Throat Swelling, Difficulty Swallowing Respiratory: No: Cough, Orthopnea, Shortness of Breath Cardiac (ROS): Yes: See HPI, Chest Pain. No: Edema, Irregular Heart Rate, Lightheadedness, Palpitations, Syncope, Chest Tightness ABD/GI: No: Constipated, Diarrhea, Nausea, Poor Appetite, Poor Fluid Intake, Vomiting : No: Burning, Dysuria, Frequency, Hematuria, Pain, Urgency Musculoskeletal: No: Back Pain, Joint Pain, Joint Swelling Integumentary: Yes: Change in Color (redness and "tightness" in lower R leg), Erythema. No: Bruising, Rash Neurological: No: Headache, Numbness, Weakness, Unsteady Gait, Dizziness Psychiatric: No: Sleep Pattern Change, Change in Appetite Endocrine: No: Increased Urine, Change in Weight Hematologic/Lymphatic: No: Anemia, Blood Clots, Easy Bleeding, Easy Bruising All Other Systems: Reviewed and Negative *Physical Exam - Vital Signs Last Vital Signs Temp Pulse Resp BP Pulse Ox 98 F 67 18 117/68 97 09/12/19 15:00 09/12/19 15:00 09/12/19 15:00 09/12/19 15:00 09/12/19 15:00 - Physical Exam Vitals stable, pt afebrile. Pt in NAD, morbidly obese body habitus. Pt alert and oriented x3. plug wirer generally intact, muscular strength and sensation intact. No midline spinal tenderness, step-offs, or crepitus. Head normocephalic, atraumatic. Eyes PERRLA, EOMI. Oropharynx without erythema or exudates, no LAD b/l. No nasal congestion. Hearing intact. Clear heart sounds, S1/S2, no JVD, b/l pedal edema, or heart murmur. Clear lung sounds, no respiratory distress, wheezes, crackles, or accessory muscle use. No abdominal or CVA tenderness to palpation, no rebound, no guarding. Abdomen soft, non-distended, and with normoactive bowel sounds. RLE erythema and warmth up to mid ling with small healing abrasions. Skin otherwise without jaundice or rash. 09/12/19 17:26 09/12/19 18:48 ED Treatment Course - LABORATORY CBC & Chemistry Diagram: 09/12/19 10:00 09/12/19 10:00 - ADDITIONAL ORDERS Additional order review: Laboratory Results 09/12/19 09/12/19 10:00 10:00 PT with INR 12.10 INR 1.03 PTT (Actin FS) 29.7 Sodium 137 Potassium 4.4 Chloride 105 Carbon Dioxide 24 Anion Gap 9 BUN 34.1 H Creatinine 1.3 Est GFR (CKD-EPI)AfAm 70.20 Est GFR (CKD-EPI)NonAf 60.57 Random Glucose 152 H Calcium 9.1 Magnesium 2.5 H Total Bilirubin 1.2 H AST 68 H ALT 58 Alkaline Phosphatase 89 Creatine Kinase 324 H Creatine Kinase Index 0.6 CK-MB (CK-2) 2.1 Troponin I < 0.02 Total Protein 7.4 Albumin 3.8 09/12/19 10:00 RBC 5.33 MCV 85.6 MCHC 31.9 L RDW 15.1 MPV 9.4 Neutrophils % 59.3 Lymphocytes % 24.5 Monocytes % 7.4 Eosinophils % 8.4 H Basophils % 0.4 - RADIOLOGY Radiology Studies Ordered: Category Date Time Status CHEST X-RAY PORTABLE* [RAD] Stat Radiology 09/12/19 09:56 Completed DUPLEX VASCUL US-2LEGS [US] Stat Ultrasound 09/12/19 11:37 Completed - Medications Given in the ED: ED Medications Discontinued Medications Generic Name Dose Route Start Last Admin Trade Name Eduin PRN Reason Stop Dose Admin Acetaminophen 1,000 mg 09/12/19 09:56 09/12/19 10:32 Ofirmev Injection - IVPB 09/12/19 09:57 1,000 mg ONCE ONE Administration Aspirin 324 mg 09/12/19 10:11 09/12/19 10:32 Asa - PO 09/12/19 10:12 324 mg ONCE ONE Administration Clindamycin Phosphate 600 mg in 50 mls @ 100 mls/hr 09/12/19 11:40 09/12/19 11:57 Cleocin 600 Mg Premix Ivpb - IVPB 09/12/19 12:09 100 mls/hr ONCE ONE Administration Protocol Medical Decision Making - Medical Decision Making Pt was seen at bedside, also will be seen by attending Dr. Holley. Pt presenting with exertional chest pain, multiple cardiac risk factors. Pain resolved on my exam. RLE also concerning for cellulitis. Will likely admit to tele obs due to chest pain with multiple risk factors. Provided full dose aspirin and 600 mg IV clindamycin for cellulitis. Will continue to reassess pt and monitor for symptomatic improvement. ECG: paced with PVCs. No significant EKG abnormalities. 09/12/19 18:52 Labs generally WNL Trop <.[address] Solano for tele observation. Dr. Mchugh aware and will see pt in ER. 09/12/19 19:01 Discharge - Discharge Information Problems reviewed: Yes Clinical Impression/Diagnosis: Pacemaker Chest pain Qualifiers: Chest pain type: chest pain due to myocardial ischemia Ischemic chest pain type: stable angina pectoris Qualified Code(s): I20.8 - Other forms of angina pe ctoris Cellulitis Qualifiers: Site of cellulitis: extremity Site of cellulitis of extremity: lower extremity Laterality: right Qualified Code(s): L03.115 - Cellulitis of right lower limb Condition: Stable - Admission Yes - Follow up/Referral - Patient Discharge Instructions - Post Discharge Activity
[2019-09-12] MEDS ORDERED: ASPIRIN 81 MG CHEWABLE TABLETS PO ONE (10:11)
[2019-09-12] MEDS ORDERED: ACETAMINOPHEN INJECTION 100 ML IVPB ONE (10:36)
[2019-09-12] MEDS ORDERED: ASPIRIN 81 MG CHEWABLE TABLETS ONE (10:36)
--- NOTE | 2019-09-12 10:53 | PDOC ---
Attending Attestation - Resident Resident Name: Dianne Francis - ED Attending Attestation I have performed the following: I have examined & evaluated the patient, The case was reviewed & discussed with the resident, I agree w/resident's findings & plan - HPI HPI: 09/12/19 11:24 57 y.o M with history of T2DM for years and HTN, symptomatic bradycardia and 2:1 AVB, AICD/PPM in place, with last admission in 2019, presenting with chest pain. 09/12/19 12:32 09/12/19 13:21 - Physicial Exam PE: 09/12/19 11:22 General: NAD, awake and alert HEENT: NCAT, PERRL, EOMI, clear conjunctiva, anicteric, moist mucous membranes, clear oropharynx, no oral lesions.. Neck: neck supple, FROM Resp: CTAB, normal and even respirations, no respiratory distress CVS: RRR, no murmurs, 2+ peripheral pulses throughout, no peripheral edema Chest: Left anterior chest wall AICD palpated, scar in place well-healed, nontender in area. Abdomen: soft, NTND, no rebound or guarding. Back: nontender, normal inspection and ROM MSK: no edema, ALVA x4, ROM intact. No clubbing or cyanosis. normal bulk and tone. Extremities: no calf tenderness Neuro: alert, oriented appropriately; no focal neurologic deficits Skin: warm and well perfused, cap refill <2 sec, normal color; erythema to lower extrem. 09/12/19 12:35 09/12/19 13:20 09/12/19 13:21 - Medical Decision Making 09/12/19 10:53 Vital Signs Temp Pulse Resp BP Pulse Ox 98.8 F 66 18 94/63 95 09/12/19 09:48 09/12/19 09:48 09/12/19 09:48 09/12/19 09:48 09/12/19 09:48 09/12/19 12:35 vitals reviewed, unremarkable. no respiratory distres. DDx chest pain: ACS, coronary vasospasm, NSTEMI, arrhythmia, unstable angina, PE, dissection, PUD, esophageal spasm, GERD, gastritis, costochondritis, pneumonia, pleurisy, pericarditis/myocarditis. dehydration, electrolyte/metabolic derangements. Interpreted by ED Physician: CXR : no acute abnormality: no infiltrates, bones appear intact and structures normal alignment, cardiac silhouette within normal limits. no free air under diaphragm, no pneumothorax. AICD in place EKG normal sinus rhythm, no interval abnormalities, narrow QRS, ST and T wave segments and morphology normal. Nonspecific T wave abnormalities, unchanged from prior Chest pain HEART score 3 which denotes low risk and probability for ACS, risk of <1.7% of MACE at 4-6 wks Given risk factors including comorbidities, gender, prior history and symptoms. Plan for admit observation, possible Stress testing, to r/o ischemia, serial trops and EKG/tele monitoring. ASA administered, pain controlled, discussion with patient and family at bedside, made aware of impression and plan, questions answered. admit to Dr Solano 09/12/19 13:22 Heart Score/ECG Review - History History: Slightly suspicious - Electrocardiogram EKG: Non specific repolarization disturbance - Age Age: 45-65 - Risk Factors Risk Factors Heart Score: Yes Hx Hypertension, Yes Hx Obesity Based on the list above the patient has:: 1-2 risk factors - Troponin Troponin: </= normal limit - Score Heart Score - Total: 3 #1 ECG reviewed & interpreted by me at: 09:45 General ECG Interpretation: Sinus Rhythm, Normal Rate, Normal Intervals Compared to previous ECG there are: No significant change 09/12/19 11:23 EKG AV paced, at 70 bpm. intermittent PVCs, wide QRS, appropriate ST segment discordance and nonspecific T wave abnormalities, no ST elevations, no concordant changes Discharge - Discharge Information Problems reviewed: Yes Clinical Impression/Diagnosis: Chest pain Condition: Fair - Admission Yes - Follow up/Referral - Patient Discharge Instructions - Post Discharge Activity
[2019-09-12 10:58] LABS: BASO % 0.4 % (0-2.0); EOS % 8.4 % (0-4.5); HEMATOCRIT 45.6 % (35.4-49); HEMOGLOBIN 14.6 GM/dL (11.7-16.9); LYMPH % 24.5 % (8-40); MCH 27.3 pg (25.7-33.7); MCHC 31.9 g/dl (32.0-35.9); MEAN CELL VOLUME 85.6 fl (80-96); MEAN PLT VOLUME 9.4 fl (7.5-11.1); MONO % 7.4 % (3.8-10.2); NEUT % 59.3 % (42.8-82.8); PLATELET COUNT 216 K/MM3 (134-434); RBC 5.33 M/mm3 (4.00-5.60); RDW 15.1 % (11.9-15.9); WHITE BLOOD COUNT 12.2 K/mm3 (4.0-10.0)
[2019-09-12 11:02] LABS: INR 1.03 (0.83-1.09); PROTHROMBIN TIME (PATIENT) 12.1 SEC (9.7-13.0)
[2019-09-12 11:04] LABS: ACTIVATED PTT 29.7 SECONDS (25.2-36.5)
[2019-09-12 11:22] LABS: ALBUMIN 3.8 g/dl (3.4-5.0); ALK PHOS 89 U/L (45-117); ANION GAP 9 MMOL/L (8-16); BILIRUBIN,TOTAL 1.2 mg/dL (0.2-1); BLOOD UREA NITROGEN 34.1 mg/dL (7-18); CALCIUM 9.1 mg/dL (8.5-10.1); CHLORIDE 105 mmol/L (98-107); CO2 24 mmol/L (21-32); CREATININE 1.3 mg/dL (0.55-1.3); GLUCOSE,RANDOM 152 mg/dL (74-106); MAGNESIUM 2.5 mg/dL (1.8-2.4); POTASSIUM 4.4 mmol/L (3.5-5.1); SGOT/AST 68 U/L (15-37); SGPT/ALT 58 U/L (13-61); SODIUM 137 mmol/L (136-145); TOT PROT 7.4 g/dl (6.4-8.2)
[2019-09-12] MEDS ORDERED: CLINDAMYCIN 600MG PREMIX IVPB 600 MG/50 ML BAG IVPB ONE (11:40)
[2019-09-12] MEDS ORDERED: CLINDAMYCIN PHOSPHATE 600 MG/4 ML VIAL ONE (11:47)
--- NOTE | 2019-09-12 11:50 | EKG ---
Test Reason : Blood Pressure : / mmHG Vent. Rate : 070 BPM Atrial Rate : 070 BPM P-R Int : 142 ms QRS Dur : 172 ms QT Int : 482 ms P-R-T Axes : 001 -80 022 degrees QTc Int : 520 ms Atrial-sensed ventricular-paced rhythm WITH OCCASIONAL atrial-paced complexes AND WITH OCCASIONAL PREMATURE VENTRICULAR COMPLEXES Biventricular pacemaker detected ABNORMAL ECG WHEN COMPARED WITH ECG OF 14-MAY-2018 13:20, ELECTRONIC VENTRICULAR PACEMAKER HAS REPLACED SINUS RHYTHM VENT. RATE HAS INCREASED BY 36 BPM Confirmed by ORTIZ SNIDER MD ([id number]) on 09/12/2019 11:50:26 AM Referred By: Confirmed By:ORTIZ SNIDER MD
--- NOTE | 2019-09-12 12:46 | CON.CARD ---
Consult Consult Specialty:: Cardiology Referred by:: ED Reason for Consultation:: Chest pain - History of Present Illness Chief Complaint: Chest pain History of Present Illness: Ronald Centeno a 58 year oldmalewith a history of HTN, hypercholesterolemia, type 2 DM, exogenous obesity, advanced AV block s/p Artem Sc i dual chamber pacer placement last visit 08/30/2019 presents to ED with chest pressure while moving heavy objects since resolved, denies associated LEWIS, radiation, near or true syncope, orthopnea, PND, LE edema, claudication, decrement in exercise capacity. 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 Cardio/Vascular: Yes: HTN, Hyperlipdemia Endocrine: Yes: Diabetes Mellitus - Alcohol/Substance Use Hx Alcohol Use: No History of Substance Use: reports: None - Smoking History Smoking history: Never smoked Have you smoked in the past 12 months: No Home Medications - Allergies Allergies/Adverse Reactions: Allergies Allergy/AdvReac Type Severity Reaction Status Date / Time No Known Allergies Allergy Verified 09/12/19 09:51 - Home Medications Home Medications: Ambulatory Orders ASA - 81 mg PO DAILY 06/24/16 Amlodipine Besylate 10 mg PO DAILY 06/24/16 Atenolol 50 mg PO DAILY 06/24/16 Bydureon Pen 2 mg SQ WEEKLY 06/24/16 Gabapentin 300 mg PO BID 06/24/16 Invokamet 150-500 mg Tablet 1 mg PO BID 06/24/16 Lipitor 20 mg PO DAILY 06/24/16 Novolog Mix 70-30 Flexpen Syrn 40 unit SQ BID 06/24/16 Quinapril/Hydrochlorothiazide 1 tab PO DAILY 06/24/16 Canagliflozin/Metformin HCl [Invokamet Xr 150-500 mg Tablet] 1 each PO BID 05/14/18 Cholecalciferol (Vitamin D3) [Vitamin D3] 1,000 unit PO DAILY 05/14/18 Cyclobenzaprine HCl 10 mg PO TID 05/14/18 Review of Systems - Review of Systems Cardiovascular: reports: Chest Pain Vital Signs: Vital Signs Temperature 98.8 F 09/12/19 09:48 Pulse Rate 66 09/12/19 09:48 Respiratory Rate 18 09/12/19 09:48 Blood Pressure 94/63 09/12/19 09:48 O2 Sat by Pulse Oximetry (%) 96 07/09/20 09:48 Constitutional: Yes: No Distress, Calm Neck: Yes: Supple Respiratory: Yes: Regular, CTA Bilaterally Gastrointestinal: Yes: Normal Bowel Sounds, Soft, Abdomen, Obese Cardiovascular: Yes: Regular Rate and Rhythm JVD: No Carotid Bruit: No Heart Sounds: Yes: S1, S2 Edema: No - Other Data Labs, Other Data: CBC, BMP 09/12/19 10:00 09/12/19 10:00 INR, PTT INR 1.03 (0.83-1.09) 09/12/19 10:00 Troponin, BNP 09/12/19 10:00 Troponin I < 0.02 Troponin, BNP 09/12/19 10:00 Troponin I < 0.02 A-sensed v-paced @ 70 with PVC Ejection Fraction %: LVEF > or = 40 % Imaging - Results Chest X-ray: Report Reviewed (Left hilar calcification, ICD) Problem List - Problems (1) Pacemaker Code(s): Z95.0 - PRESENCE OF CARDIAC PACEMAKER (2) Chest pain Code(s): R07.9 - CHEST PAIN, UNSPECIFIED Qualifiers: Ischemic chest pain type: stable angina pectoris (3) Elevated liver enzymes Code(s): R74.8 - ABNORMAL LEVELS OF OTHER SERUM ENZYMES (4) Angina pectoris Code(s): I20.9 - ANGINA PECTORIS, UNSPECIFIED (5) HTN (hypertension) Code(s): I10 - ESSENTIAL (PRIMARY) HYPERTENSION Qualifiers: Hypertension type: essential hypertension Qualified Code(s): I10 - Essential (primary) hypertension (6) Hypercholesterolemia Code(s): E78.00 - PURE HYPERCHOLESTEROLEMIA, UNSPECIFIED (7) Diabetes 1.5, managed as type 1 Code(s): E13.9 - OTHER SPECIFIED DIABETES MELLITUS WITHOUT COMPLICATIONS (8) BERNABE (nonalcoholic steatohepatitis) Code(s): K75.81 - NONALCOHOLIC STEATOHEPATITIS (BERNABE) (9) Atrioventricular block, second degree Code(s): I44.1 - ATRIOVENTRICULAR BLOCK, SECOND DEGREE Assessment/Plan Echo: 05/14/2018 Normal LV and RV size and fxn LVEF 55-60%, mild LAE, mild MR, TR LHC: 05/17/2018 Non-obstructive CAD and normal LV fxn 06/01/[address] shows pulm nodule stable per f/u chest CT 11/02/2018. 1. Chest pain, r/o CAD 2. 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 HTN 4. Hypercholesterolemia 5. Type 2 DM 6. Exogenous obesity 7. BERNABE PLAN: 1. Ruling out MS, f/u chest CT 2. Continue Atenolol 50 qd, Norvasc 10 qd, ASA 81 qd, Lipitor 20 qd, HCTZ 12.5 qd, Accupril 20 qd 3. Lexiscan Myoview r/o CAD may be performed as outpatient 4. Thank you for consultative opportunity
--- NOTE | 2019-09-12 15:01 | HP ---
Admitting History and Physical - Admission Chief Complaint: 58 y.o M known from the office with multiple RF for ISAIAH hollis today at work while moving and lifting heavy objects in AM SSCP across upper sternum-pressure, hot feeling. No N/V, no LOC, no radiation. The pain lasted 15 min and resolved at rest. Presented to [facility] for further management. History of Present Illness: PPM place in 2019 for CHB. DM TYPE 2 ON INSULIN DIABETIC NEPHROPATHY, NEUROPATHY. HTN LBBB. Paroxysmal SVT. Right 3rd toe ulcer. BERNABE with elevated LFT Partially calcified anterior mediastinal LN. Anterior mediastinal mass [address] 06/01/2018- PET/CT done by cardiology Exertional SSCP previously- the patient is being followed by cardiology. 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 Cardiovascular: Yes: HTN, Hyperlipdemia Hepatobiliary: Yes: Other (BERNABE) Heme/Onc: No: Anemia, B12 Deficiency, Bleeding Disorder, Cancer, Current Chemotherapy, Current Radiation Therapy, Hemochromatosis, Hypercoaguable State, Myeloproliferative Synd, Sickle Cell Disease, Sickle Cell Trait, Thrombocytopenia, Other Infectious Disease: No: AIDS, C-Diff, Herpes Zoster, HIV, MRSA, STD's, Tuberculosis, VREF, Other Musculoskeletal: Yes: Chronic low back pain Endocrine: Yes: Diabetes Mellitus - Smoking History Smoking history: Never smoked Have you smoked in the past 12 months: No - Alcohol/Substance Use Hx Alcohol Use: No History of Substance Use: reports: None - Social History Usual Living Arrangement: Yes: Alone History of Recent Travel: No Home Medications - Allergies Allergies/Adverse Reactions: Allergies Allergy/AdvReac Type Severity Reaction Status Date / Time No Known Allergies Allergy Verified 09/12/19 09:51 - Home Medications Home Medications: Ambulatory Orders ASA - 81 mg PO DAILY 06/24/16 Amlodipine Besylate 10 mg PO DAILY 06/24/16 Atenolol 50 mg PO DAILY 06/24/16 Bydureon Pen 2 mg SQ WEEKLY 06/24/16 Gabapentin 300 mg PO BID 06/24/16 Invokamet 150-500 mg Tablet 1 mg PO BID 06/24/16 Lipitor 20 mg PO DAILY 06/24/16 Novolog Mix 70-30 Flexpen Syrn 40 unit SQ BID 06/24/16 Quinapril/Hydrochlorothiazide 1 tab PO DAILY 06/24/16 Canagliflozin/Metformin HCl [Invokamet Xr 150-500 mg Tablet] 1 each PO BID 05/14/18 Cholecalciferol (Vitamin D3) [Vitamin D3] 1,000 unit PO DAILY 05/14/18 Cyclobenzaprine HCl 10 mg PO TID 05/14/18 Family Medical History Family History: Unremarkable Review of Systems - Review of Systems Constitutional: denies: Chills, Diaphoresis, Lethargy, Loss of Appetite, Malaise, Weakness Eyes: reports: No Symptoms HENT: reports: No Symptoms Neck: reports: No Symptoms Cardiovascular: reports: Chest Pain, Shortness of Breath Respiratory: denies: Cough, Exercise Intolerance Gastrointestinal: denies: Abdominal Pain, Bloating, Diarrhea, Nausea, Vomiting Genitourinary: denies: Burning, Discharge Breasts: reports: No Symptoms Reported Musculoskeletal: reports: Back Pain. denies: Extremity Pain, Joint Pain, Joint Swelling, Muscle Pain Integumentary: reports: Other (LE stasis changes). denies: Bruising, Change in Color Neurological: denies: Change in LOC, Change in Speech, Confusion, Incoordination Endocrine: denies: Excessive Sweating, Flushing, Increased Hunger Hematology/Lymphatic: denies: Easily Bruised, Excessive Bleeding, Swollen Glands Physical Examination Vital Signs: Vital Signs Temperature 98.8 F 09/12/19 09:48 Pulse Rate 66 09/12/19 09:48 Respiratory Rate 18 09/12/19 09:48 Blood Pressure 94/63 09/12/19 09:48 O2 Sat by Pulse Oximetry (%) 96 09/12/19 09:48 Constitutional: Yes: Well Nourished, Calm, Obese. No: Diaphoresis, Mild Distress, Moderate Distress HENT: No: Atraumatic, Normocephalic, Drooling, Epistaxis, Pharyngeal Erythema Neck: Yes: Supple, Trachea Midline. No: Decreased ROM, Lymphadenopathy Cardiovascular: Yes: Regular Rate and Rhythm, Other (Left PPM in situ). No: Bradycardia, JVD, Rub Respiratory: Yes: Regular, CTA Bilaterally Gastrointestinal: Yes: Normal Bowel Sounds, Soft, Abdomen, Obese. No: Pulsatile Mass, Splenomegaly, Tenderness, Tenderness, Rebound, Vomiting ...Rectal Exam: Yes: Deferred Renal/: No: Anuria, Bladder Distention, CVA Tenderness - Left, CVA Tenderness - Right Breast(s): Yes: WNL Musculoskeletal: No: Back Pain, Joint Stiffness Extremities: No: Amputation, Calf Tenderness, Cold, Cool Edema: Yes Edema: LLE: Trace, RLE: Trace Peripheral Pulses: Left Doralis Pedis: 1+, Right Dorsalis Pedis: 1+ Integumentary: Yes: Other (LE stasis changes) Neurological: Yes: Alert, Oriented, Cran Nerves II-XII Intact. No: Aphasia, Asterixis, Ataxia, Dysarthria, Lethargy, Loss of Sensation, Seizure, Tremors, Unresponsive ...Motor Strength: WNL Psychiatric: Yes: WNL Labs: CBC, BMP 09/12/19 10:00 09/12/19 10:00 Laboratory Results - last 24 hr 09/12/19 09/12/19 09/12/19 10:00 10:00 10:00 WBC 12.2 H RBC 5.33 Hgb 14.6 Hct 45.6 MCV 85.6 MCH 27.3 MCHC 31.9 L RDW 15.1 Plt Count 216 MPV 9.4 Absolute Neuts (auto) 7.3 Neutrophils % 59.3 Lymphocytes % 24.5 Monocytes % 7.4 Eosinophils % 8.4 H Basophils % 0.4 Nucleated RBC % 0 PT with INR 12.10 INR 1.03 PTT (Actin FS) 29.7 Sodium 137 Potassium 4.4 Chloride 105 Carbon Dioxide 24 Anion Gap 9 BUN 34.1 H Creatinine 1.3 Est GFR (CKD-EPI)AfAm 70.20 Est GFR (CKD-EPI)NonAf 60.57 Random Glucose 152 H Calcium 9.1 Magnesium 2.5 H Total Bilirubin 1.2 H AST 68 H ALT 58 Alkaline Phosphatase 89 Creatine Kinase 324 H Creatine Kinase Index 0.6 CK-MB (CK-2) 2.1 Troponin I < 0.02 Total Protein 7.4 Albumin 3.8 09/12/19 13:30 WBC RBC Hgb Hct MCV MCH MCHC RDW Plt Count MPV Absolute Neuts (auto) Neutrophils % Lymphocytes % Monocytes % Eosinophils % Basophils % Nucleated RBC % PT with INR INR PTT (Actin FS) Sodium Potassium Chloride Carbon Dioxide Anion Gap BUN Creatinine Est GFR (CKD-EPI)AfAm Est GFR (CKD-EPI)NonAf Random Glucose Calcium Magnesium Total Bilirubin AST ALT Alkaline Phosphatase Creatine Kinase Creatine Kinase Index CK-MB (CK-2) Troponin I < 0.02 Total Protein Albumin Imaging - Results Chest X-ray: Report Reviewed Cat Scan: Pending (f/u on anterior mediastinal mass) Ultrasound: Pending (LE venous dupplex) EKG: Image Reviewed Problem List - Problems (1) Angina pectoris Assessment/Plan: Exertional angina. Probably stable angina. EST to be repeated as per cardiology. Continue BAB, Statins, ASA Problems reviewed: Yes Code(s): I20.9 - ANGINA PECTORIS, UNSPECIFIED (2) Diabetes 1.5, managed as type 1 Assessment/Plan: BGM QID. Coverage with NOvolog Novolog mix 70 30-30 units BID Metformin BID 1000 Problems reviewed: Yes Code(s): E13.9 - OTHER SPECIFIED DIABETES MELLITUS WITHOUT COMPLICATIONS (3) Leukocytosis (leucocytosis) Assessment/Plan: Repeat WBC in AM , no clear symptoms of cellulitis of LE, JARRELL both cool touch,more of stasis chronic changes Problems reviewed: Yes Code(s): D72.829 - ELEVATED WHITE BLOOD CELL COUNT, UNSPECIFIED Qualifiers: Leukocytosis type: unspecified Qualified Code(s): D72.829 - Elevated white blood cell count, unspecified (4) Chest pain Assessment/Plan: ISABELA CT chest Cardiology f/u Telemetry observation. Code(s): R07.9 - CHEST PAIN, UNSPECIFIED Qualifiers: Ischemic chest pain type: stable angina pectoris (5) Elevated liver enzymes Assessment/Plan: Related to BERNABE. Diet and weight loss discussed with the patient Problems reviewed: Yes Code(s): R74.8 - ABNORMAL LEVELS OF OTHER SERUM ENZYMES
[2019-09-12] MEDS ORDERED: INSULIN (NOVOLOG MIX 70/30) 100 UNITS/ML MDV SQ ONE (18:25)
[2019-09-12] MEDS ORDERED: metFORMIN HCL 500 MG TABLET (FP) ONE (18:25)
[2019-09-12] MEDS: INSULIN SLIDING SCALE (NOVOLOG) 1 VIAL SQ SCH ×2 (18:29→22:25)
[2019-09-12] MEDS: INSULIN (NOVOLOG MIX 70/30) 100 UNITS/ML MDV SQ SCH (18:29)
[2019-09-12] MEDS: metFORMIN HCL 500 MG TABLET (FP) PO SCH (18:29)
[2019-09-12] MEDS ORDERED: ATORVASTATIN CA 20 MG TABLET (FP) PO SCH (22:00)
[2019-09-12] MEDS: GABAPENTIN 300 MG CAPSULE PO SCH (22:24)
[2019-09-12] MEDS: HEPARIN NA (PORCINE) 5,000 UNITS/ML 1ML VIAL SQ SCH (22:25)
[2019-09-13] MEDS: HEPARIN NA (PORCINE) 5,000 UNITS/ML 1ML VIAL SQ SCH (05:46)
[2019-09-13] MEDS: INSULIN SLIDING SCALE (NOVOLOG) 1 VIAL SQ SCH ×2 (06:10→12:05)
[2019-09-13] MEDS: INSULIN (NOVOLOG MIX 70/30) 100 UNITS/ML MDV SQ SCH (06:10)
[2019-09-13] MEDS: metFORMIN HCL 500 MG TABLET (FP) PO SCH (06:10)
[2019-09-13 06:34] VITALS: TEMP 98.2
[2019-09-13 07:11] LABS: BASO % 0.6 % (0-2.0); EOS % 9.3 % (0-4.5); HEMATOCRIT 43.7 % (35.4-49); HEMOGLOBIN 14.2 GM/dL (11.7-16.9); LYMPH % 25.3 % (8-40); MCH 27.7 pg (25.7-33.7); MCHC 32.5 g/dl (32.0-35.9); MEAN PLT VOLUME 8.9 fl (7.5-11.1); MONO % 7.1 % (3.8-10.2); NEUT % 57.7 % (42.8-82.8); PLATELET COUNT 191 K/MM3 (134-434); RBC 5.14 M/mm3 (4.00-5.60); WHITE BLOOD COUNT 10.3 K/mm3 (4.0-10.0)
[2019-09-13 07:36] LABS: ALBUMIN 3.8 g/dl (3.4-5.0); BILIRUBIN,TOTAL 1.3 mg/dL (0.2-1); BLOOD UREA NITROGEN 29.1 mg/dL (7-18); POTASSIUM 3.8 mmol/L (3.5-5.1)
--- NOTE | 2019-09-13 09:33 | PN ---
Progress Note (short form) - Note Progress Note: no more sx; ambulatory; negative Trop;CT as below Vital Signs Temperature 98.2 F 09/13/19 06:00 Pulse Rate 77 09/13/19 06:00 Respiratory Rate 15 09/13/19 06:00 Blood Pressure 120/65 09/13/19 06:00 O2 Sat by Pulse Oximetry (%) 97 09/12/19 15:00 Constitutional: Yes: No Distress, Calm Neck: Yes: Supple Respiratory: Yes: Regular, CTA Bilaterally Gastrointestinal: Yes: Normal Bowel Sounds, Soft, Abdomen, Obese Cardiovascular: Yes: Regular Rate and Rhythm JVD: No Carotid Bruit: No Heart Sounds: Yes: S1, S2 Edema: No - Other Data Labs, Other Data: CBC, BMP 09/13/19 06:13 09/13/19 06:13 Troponin, BNP 09/12/19 10:00 Troponin I < 0.02 Troponin, BNP 09/12/19 10:00 Troponin I < 0.02 A-sensed v-paced @ 70 with PVC Ejection Fraction %: LVEF > or = 40 % Imaging - Results Chest X-ray: Report Reviewed (Left hilar calcification, ICD) Problem List - Problems (1) Pacemaker Code(s): Z95.0 - PRESENCE OF CARDIAC PACEMAKER (2) Chest pain Code(s): R07.9 - CHEST PAIN, UNSPECIFIED Qualifiers: Ischemic chest pain type: stable angina pectoris (3) Elevated liver enzymes Code(s): R74.8 - ABNORMAL LEVELS OF OTHER SERUM ENZYMES (4) Angina pectoris Code(s): I20.9 - ANGINA PECTORIS, UNSPECIFIED (5) HTN (hypertension) Code(s): I10 - ESSENTIAL (PRIMARY) HYPERTENSION Qualifiers: Hypertension type: essential hypertension Qualified Code(s): I10 - Essential (primary) hypertension (6) Hypercholesterolemia Code(s): E78.00 - PURE HYPERCHOLESTEROLEMIA, UNSPECIFIED (7) Diabetes 1.5, managed as type 1 Code(s): E13.9 - OTHER SPECIFIED DIABETES MELLITUS WITHOUT COMPLICATIONS (8) BERNABE (nonalcoholic steatohepatitis) Code(s): K75.81 - NONALCOHOLIC STEATOHEPATITIS (BERNABE) (9) Atrioventricular block, second degree Code(s): I44.1 - ATRIOVENTRICULAR BLOCK, SECOND DEGREE Assessment/Plan Echo: 05/14/2018 Normal LV and RV size and fxn LVEF 55-60%, mild LAE, mild MR, T R LHC: 05/17/2018 Non-obstructive CAD and normal LV fxn 06/01/[address] shows pulm nodule stable per f/u chest CT 11/02/2018. 1. Chest pain, r/o CAD (cath 05/2018: nonobstructive) 2. 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 HTN 4. Hypercholesterolemia 5. Type 2 DM 6. Exogenous obesity 7. BERNABE PLAN: 1. No LA, chest CT; large bilobed partially calcified mass ;fatty liver 2. Continue Atenolol 50 qd, Norvasc 10 qd, ASA 81 qd, Lipitor 20 qd, HCTZ 12.5 q d, Accupril 20 qd 3. Lexiscan Myoview r/o CAD may be performed as outpatient 4.Can be d/c'ed from cardiac standpoint; mass evaluation per primary team
--- NOTE | 2019-09-13 09:53 | PN ---
Progress Note (short form) - Note Progress Note: No chest pain, ISABELA-megative. Cardiology consult -Lexiscan can be done as outpatient. CT chest-reviewed with Dr Hurtado, Again noted partially calcified anterior mediastinal mass. Mot amenable for IR biopsy. Spoke with Dr Gonsalves-he will see the patient prior to discharge. Mediastinoscopy can be performed as outpt. AFP, LDH, BHCG, JOURDAN receptors ab ordered. Vital Signs (72 hours) 09/12/19 09/12/19 09/12/19 09:48 15:00 18:48 Temperature 98.8 F 98 F 98 F Pulse Rate 66 76 Pulse Rate [ 67 Apical] Respiratory 18 18 18 Rate Blood Pressure 94/63 122/99 Blood Pressure 117/68 [Left Arm] O2 Sat by Pulse 96 97 Oximetry (%) 09/12/19 09/12/19 09/12/19 18:56 20:00 22:00 Temperature 98 F 98 F 98.1 F Pulse Rate 64 64 Pulse Rate [ Apical] Respiratory 18 18 18 Rate Blood Pressure 112/78 129/67 Blood Pressure [Left Arm] O2 Sat by Pulse Oximetry (%) 09/13/19 09/13/19 09/13/19 00:00 02:00 06:00 Temperature 98.3 F 98.2 F Pulse Rate 60 68 77 Pulse Rate [ Apical] Respiratory 16 15 15 Rate Blood Pressure 130/73 114/67 120/65 Blood Pressure [Left Arm] O2 Sat by Pulse Oximetry (%) PE Lungs are clear. Heart S1S@ Regular, Monitor-rhythm of PPM abdomen obese, NT Ext no significamt edema Neuro A&O x3, non-focal exam. Laboratory Results - last 24 hr 09/12/19 09/12/19 09/12/19 10:00 10:00 10:00 WBC 12.2 H RBC 5.33 Hgb 14.6 Hct 45.6 MCV 85.6 MCH 27.3 MCHC 31.9 L RDW 15.1 Plt Count 216 MPV 9.4 Absolute Neuts (auto) 7.3 Neutrophils % 59.3 Lymphocytes % 24.5 Monocytes % 7.4 Eosinophils % 8.4 H Basophils % 0.4 Nucleated RBC % 0 PT with INR 12.10 INR 1.03 PTT (Actin FS) 29.7 Sodium 137 Potassium 4.4 Chloride 105 Carbon Dioxide 24 Anion Gap 9 BUN 34.1 H Creatinine 1.3 Est GFR (CKD-EPI)AfAm 70.20 Est GFR (CKD-EPI)NonAf 60.57 POC Glucometer Random Glucose 152 H Hemoglobin A1c % Calcium 9.1 Magnesium 2.5 H Total Bilirubin 1.2 H AST 68 H ALT 58 Alkaline Phosphatase 89 Creatine Kinase 324 H Creatine Kinase Index 0.6 CK-MB (CK-2) 2.1 Troponin I < 0.02 B-Natriuretic Peptide Total Protein 7.4 Albumin 3.8 Triglycerides Cholesterol Total LDL Cholesterol HDL Cholesterol 09/12/19 09/12/19 09/12/19 13:30 18:26 21:07 WBC RBC Hgb Hct MCV MCH MCHC RDW Plt Count MPV Absolute Neuts (auto) Neutrophils % Lymphocytes % Monocytes % Eosinophils % Basophils % Nucleated RBC % PT with INR INR PTT (Actin FS) Sodium Potassium Chloride Carbon Dioxide Anion Gap BUN Creatinine Est GFR (CKD-EPI)AfAm Est GFR (CKD-EPI)NonAf POC Glucometer 164 Random Glucose Hemoglobin A1c % Calcium Magnesium Total Bilirubin AST ALT Alkaline Phosphatase Creatine Kinase Creatine Kinase Index CK-MB (CK-2) Troponin I < 0.02 B-Natriuretic Peptide 18.5 Total Protein Albumin Triglycerides Cholesterol Total LDL Cholesterol HDL Cholesterol 09/12/19 09/12/19 09/13/19 21:07 22:15 05:52 WBC RBC Hgb Hct MCV MCH MCHC RDW Plt Count MPV Absolute Neuts (auto) Neutrophils % Lymphocytes % Monocytes % Eosinophils % Basophils % Nucleated RBC % PT with INR INR PTT (Actin FS) Sodium Potassium Chloride Carbon Dioxide Anion Gap BUN Creatinine Est GFR (CKD-EPI)AfAm Est GFR (CKD-EPI)NonAf POC Glucometer 124 140 Random Glucose Hemoglobin A1c % Calcium Magnesium Total Bilirubin AST ALT Alkaline Phosphatase Creatine Kinase 239 Creatine Kinase Index 0.7 CK-MB (CK-2) 1.7 Troponin I < 0.02 B-Natriuretic Peptide Total Protein Albumin Triglycerides Cholesterol Total LDL Cholesterol HDL Cholesterol 09/13/19 09/13/19 09/13/19 06:13 06:13 06:13 WBC 10.3 H RBC 5.14 Hgb 14.2 Hct 43.7 MCV 85.0 MCH 27.7 MCHC 32.5 RDW 15.0 Plt Count 191 MPV 8.9 Absolute Neuts (auto) 5.9 Neutrophils % 57.7 Lymphocytes % 25.3 Monocytes % 7.1 Eosinophils % 9.3 H Basophils % 0.6 Nucleated RBC % 0 PT with INR INR PTT (Actin FS) Sodium 137 Potassium 3.8 Chloride 105 Carbon Dioxide 24 Anion Gap 9 BUN 29.1 H Creatinine 1.0 Est GFR (CKD-EPI)AfAm 96.40 Est GFR (CKD-EPI)NonAf 83.18 POC Glucometer Random Glucose 143 H Hemoglobin A1c % 7.8 H Calcium 9.0 Magnesium Total Bilirubin 1.3 H AST 52 H ALT 57 Alkaline Phosphatase 83 Creatine Kinase Creatine Kinase Index CK-MB (CK-2) Troponin I B-Natriuretic Peptide Total Protein 7.0 Albumin 3.8 Triglycerides 169 H Cholesterol 115 Total LDL Cholesterol 62 HDL Cholesterol 30 L Plan D/c home. F/u with cardiology , thoracic surgery. Resume meds F/U IN THE OFFICE NEXT WEEK> Problem List - Problems (1) Angina pectoris Code(s): I20.9 - ANGINA PECTORIS, UNSPECIFIED (2) Diabetes 1.5, managed as type 1 Code(s): E13.9 - OTHER SPECIFIED DIABETES MELLITUS WITHOUT COMPLICATIONS (3) Leukocytosis (leucocytosis) Code(s): D72.829 - ELEVATED WHITE BLOOD CELL COUNT, UNSPECIFIED Qualifiers: Leukocytosis type: unspecified Qualified Code(s): D72.829 - Elevated white blood cell count, unspecified (4) Chest pain Code(s): R07.9 - CHEST PAIN, UNSPECIFIED Qualifiers: Chest pain type: chest pain due to myocardial ischemia Ischemic chest pain type: stable angina pectoris Qualified Code(s): I20.8 - Other forms of angina pectoris (5) Elevated liver enzymes Code(s): R74.8 - ABNORMAL LEVELS OF OTHER SERUM ENZYMES
--- NOTE | 2019-09-13 09:56 | DS ---
Physical Examination Vital Signs: Vital Signs Temperature 98.2 F 09/13/19 06:00 Pulse Rate 77 09/13/19 06:00 Respiratory Rate 15 09/13/19 06:00 Blood Pressure 120/65 09/13/19 06:00 O2 Sat by Pulse Oximetry (%) 97 09/12/19 15:00 Constitutional: Yes: No Distress, Anxious Eyes: Yes: Conjunctiva Clear, EOM Intact HENT: Yes: Atraumatic, Normocephalic Neck: Yes: Supple, Trachea Midline Cardiovascular: Yes: Regular Rate and Rhythm, Other (Rhythm of PPM) Respiratory: Yes: Regular, CTA Bilaterally Gastrointestinal: Yes: Normal Bowel Sounds, Soft, Abdomen, Obese Renal/: No: Anuria, Bladder Distention, CVA Tenderness - Left, CVA Tenderness - Right Breast(s): Yes: WNL Musculoskeletal: Yes: Back Pain Edema: No Peripheral Pulses WNL: Yes Integumentary: Yes: WNL Neurological: Yes: Alert, Oriented ...Motor Strength: WNL Psychiatric: Yes: WNL Labs: CBC, BMP 09/13/19 06:13 09/13/19 06:13 Discharge Summary Problems reviewed: Yes Reason For Visit: Angina, CHEST PAIN Current Active Problems Cellulitis (Acute) Chest pain (Acute) Elevated liver enzymes (Acute) Leukocytosis (leucocytosis) (Acute) BERNABE (nonalcoholic steatohepatitis) (Acute) Pacemaker (Acute) Mediastinal lobulated, partially calcified mass Condition: Stable - Instructions Disposition: HOME - Home Medications Comprehensive Discharge Medication List: Ambulatory Orders ASA - 81 mg PO DAILY 06/24/16 Amlodipine Besylate 10 mg PO DAILY 06/24/16 Atenolol 50 mg PO DAILY 06/24/16 Bydureon Pen 2 mg SQ WEEKLY 06/24/16 Gabapentin 300 mg PO BID 06/24/16 Lipitor 20 mg PO DAILY 06/24/16 Novolog Mix 70-30 Flexpen Syrn 40 unit SQ BID 06/24/16 Quinapril/Hydrochlorothiazide 1 tab PO DAILY 06/24/16 Cholecalciferol (Vitamin D3) [Vitamin D3] 1,000 unit PO DAILY 05/14/18 Cyclobenzaprine HCl 10 mg PO TID 05/14/18 Amlodipine Besylate [Norvasc -] 10 mg PO DAILY tablet 09/13/19 Aspirin [ASA -] 81 mg PO DAILY tab.chew 09/13/19 Atenolol [Tenormin -] 50 mg PO DAILY tablet 09/13/19 Atorvastatin Ca [Lipitor] 20 mg PO HS tablet 09/13/19 Empagliflozin/Metformin HCl [Synjardy Xr 12.5-1,000 mg Tab] 1 each PO BID #60 tab.bp.24h 09/13/19
[2019-09-13] MEDS ORDERED: ATENOLOL 50 MG TABLET (FP) PO SCH (10:00)
[2019-09-13] MEDS ORDERED: HYDROCHLOROTHIAZIDE 12.5 MG CAPSULE (FP) PO SCH (10:00)
[2019-09-13] MEDS ORDERED: ASPIRIN 81 MG CHEWABLE TABLETS PO SCH (10:00)
[2019-09-13] MEDS ORDERED: amLODIPine BESYLATE 10 MG TABLET (FP) PO SCH (10:00)
[2019-09-13] MEDS ORDERED: QUINAPRIL HCL 20 MG TABLET (FP) PO SCH (10:00)
[2019-09-13] MEDS ORDERED: PT OWN MED DRAWER 7, Y5N ONE (10:36)
[2019-09-13] MEDS: GABAPENTIN 300 MG CAPSULE PO SCH (10:47)
--- NOTE | 2019-09-13 12:04 | CONSULT ---
Consult Consult Specialty:: thoracic surgery Referred by:: Dr. Solano Reason for Consultation:: mediastinal mass - History of Present Illness Chief Complaint: chest pain History of Present Illness: 58M with heart block s/p pm, dm, htn, morbid obesity p/w several days of chest pain on right radiating to left. CT shows mediastinal mass. No fever, weight loss, weakness, diplopia. 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 Medical History [employer]ST[employer]ER: Yes: Peripheral Neuropathy Cardio/Vascular: Yes: HTN, Hyperlipdemia Hepatobiliary: Yes: Other (BERNABE) Infectious Disease: No: AIDS, C-Diff, Herpes Zoster, HIV, MRSA, STD's, Tuberculosis, VREF, Other Musculoskeletal: Yes: Chronic low back pain Endocrine: Yes: Diabetes Mellitus - Alcohol/Substance Use Hx Alcohol Use: No History of Substance Use: reports: None - Smoking History Smoking history: Never smoked Have you smoked in the past 12 months: No - Social History History of Recent Travel: No Home Medications - Allergies Allergies/Adverse Reactions: Allergies Allergy/AdvReac Type Severity Reaction Status Date / Time No Known Allergies Allergy Verified 09/12/19 09:51 - Home Medications Home Medications: Ambulatory Orders ASA - 81 mg PO DAILY 06/24/16 Amlodipine Besylate 10 mg PO DAILY 06/24/16 Atenolol 50 mg PO DAILY 06/24/16 Bydureon Pen 2 mg SQ WEEKLY 06/24/16 Gabapentin 300 mg PO BID 06/24/16 Lipitor 20 mg PO DAILY 06/24/16 Novolog Mix 70-30 Flexpen Syrn 40 unit SQ BID 06/24/16 Quinapril/Hydrochlorothiazide 1 tab PO DAILY 06/24/16 Cholecalciferol (Vitamin D3) [Vitamin D3] 1,000 unit PO DAILY 05/14/18 Cyclobenzaprine HCl 10 mg PO TID 05/14/18 Amlodipine Besylate [Norvasc -] 10 mg PO DAILY tablet 09/13/19 Aspirin [ASA -] 81 mg PO DAILY tab.chew 09/13/19 Atenolol [Tenormin -] 50 mg PO DAILY tablet 09/13/19 Atorvastatin Ca [Lipitor] 20 mg PO HS tablet 09/13/19 Empagliflozin/Metformin HCl [Synjardy Xr 12.5-1,000 mg Tab] 1 each PO BID #60 tab.bp.24h 09/13/19 Family Medical History Other Family History: brother of esophageal cancer. Review of Systems - Review of Systems Constitutional: reports: No Symptoms Eyes: reports: No Symptoms HENT: reports: No Symptoms Neck: reports: No Symptoms Cardiovascular: reports: Chest Pain Respiratory: reports: No Symptoms Gastrointestinal: reports: No Symptoms Genitourinary: reports: No Symptoms Physical Exam Vital Signs: Vital Signs Temperature 98.2 F 09/13/19 06:00 Pulse Rate 74 09/13/19 10:00 Respiratory Rate 15 09/13/19 10:00 Blood Pressure 124/71 09/13/19 10:00 O2 Sat by Pulse Oximetry (%) 97 09/12/19 15:00 Constitutional: Yes: Obese Eyes: Yes: WNL HENT: Yes: WNL Cardiovascular: Yes: Regular Rate and Rhythm Respiratory: Yes: Regular Gastrointestinal: Yes: WNL Edema: No Labs: CBC, BMP 09/13/19 06:13 09/13/19 06:13 Imaging - Results Cat Scan: Report Reviewed, Image Reviewed Problem List - Problems (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 - MEDIASTINAL (THYMIC) LARGE B-CELL LYMPHOMA, UNSPECIFIED SITE (2) Mediastinal mass Code(s): J98.59 - OTHER DISEASES OF MEDIASTINUM, NOT ELSEWHERE CLASSIFIED (3) Chest pain Code(s): R07.9 - CHEST PAIN, UNSPECIFIED Qualifiers: Chest pain type: chest pain due to myocardial ischemia Ischemic chest pain type: stable angina pectoris Qualified Code(s): I20.8 - Other forms of angina pectoris (4) Atrioventricular block, second degree Code(s): I44.1 - ATRIOVENTRICULAR BLOCK, SECOND DEGREE (5) Diabetes 1.5, managed as type 1 Code(s): E13.9 - OTHER SPECIFIED DIABETES MELLITUS WITHOUT COMPLICATIONS (6) HTN (hypertension) Code(s): I10 - ESSENTIAL (PRIMARY) HYPERTENSION Qualifiers: Hypertension type: essential hypertension Qualified Code(s): I10 - Ess ential (primary) hypertension Assessment/Plan Mediastinal mass likely not related to patient's sx, diff includes thymoma, lymphoma, GCT, thyroid neoplasm, cavernous hemangioma, had PET 1 year ago; -Needs CT chest with IV contrast, repeat PET depending on results of old PET done at [facility]; -PFT's; -Labs to be sent prior to dc today for mediastinal mass; -Would recommend EGD since brother of esophageal cancer; -Bx versus removal after review of new imaging.
[2019-09-13 12:46] VITALS: BP 108/64; PULSE 76
--- NOTE | 2019-09-15 11:29 | EKG ---
Test Reason : Blood Pressure : / mmHG Vent. Rate : 070 BPM Atrial Rate : 070 BPM P-R Int : 128 ms QRS Dur : 162 ms QT Int : 456 ms P-R-T Axes : 002 148 025 degrees QTc Int : 492 ms Atrial-sensed ventricular-paced rhythm WITH FREQUENT PREMATURE VENTRICULAR COMPLEXES ABNORMAL ECG WHEN COMPARED WITH ECG OF 14-MAY-2018 13:20, ELECTRONIC VENTRICULAR PACEMAKER HAS REPLACED SINUS RHYTHM VENT. RATE HAS INCREASED BY 36 BPM Confirmed by ORTIZ SNIDER MD ([id number]) on 09/15/2019 11:28:48 AM Referred By: Confirmed By:ORTIZ SNIDER MD
== END 2019-09-13 13:50 | disposition home or self-care (01) ==
LOC: JER 09:40 → JERBED 13:01 → JICU 19:19
PROVIDERS: ADMIT Internal Medicine; ATTEND Internal Medicine
PROC: 3E033GC Introduction of Other Therapeutic Substance into Peripheral Vein, Percutaneous Approach (ICD-10-PCS; principal; 2019-09-12)
PROC: 3E023GC Introduction of Other Therapeutic Substance into Muscle, Percutaneous Approach (ICD-10-PCS; principal; 2019-09-12)
DX: I20.8 Other forms of angina pectoris (principal); L03.115 Cellulitis of right lower limb
CPT/HCPCS: 36415; 71045-TC-FY; 71250-TC; 80053; 80061; 82105; 82550; 82553; 82962; 83036; 83519; 83721; 83735; 83880; 84484; 84702; 85025; 85610; 85730; 93005; 93010; 93970-TC; 99285-25; G0378; J0131; J1644; U0003